=== PATIENT | male | born 1950 | race Caucasian/White ===

== ENCOUNTER 2017-07-22 16:43 | Inpatient (IN) | payer BC, MEDICARE ==
[~2017-07-22] VITALS: Ht 167.6 cm; Wt 145.9 kg
--- NOTE | 2017-07-22 16:52 | PHYS DOC ---
Adult General Chief Complaint Chief Complaint: SHORTNESS OF BREATH HPI HPI Patient is a 67 year old male who presents with fever, shortness of breath and generalized weakness. He states his been having a productive cough over the last 2 days with a sore throat. He states he is feeling very weak and tired. He and a fever 100.6 at home. He used a telephone physician who called many [facility] but he states he feels too weak and wants a second opinion. He denies any chest pain, nausea or vomiting. He states he has a history of A. fib. Patient does admit that he was in the [place] approximately 2- 3 weeks ago and initially got sick while he was there. Review of Systems Review of Systems Constitutional: Denies fever or chills [] Eyes: Denies change in visual acuity, redness, or eye pain [] HENT: Denies nasal congestion or sore throat [] Respiratory: Positive for productive cough and shortness of breath [] Cardiovascular: No additional information not addressed in HPI [] GI: Denies abdominal pain, nausea, vomiting, bloody stools or diarrhea [] : Denies dysuria or hematuria [] Musculoskeletal: Denies back pain or joint pain [] Integument: Denies rash or skin lesions [] Neurologic: Denies headache, focal weakness or sensory changes [] Endocrine: Denies polyuria or polydipsia [] All other systems were reviewed and found to be within normal limits, except as documented in this note. Allergies Allergies Allergies Coded Allergies Type Severity Reaction Last Updated Verified metoclopramide Allergy Severe 07/22/17 Yes Physical Exam Physical Exam Constitutional: Well developed, well nourished, no acute distress, non-toxic appearance. [] HENT: Normocephalic, atraumatic, bilateral external ears normal, oropharynx moist, no oral exudates, nose normal. [] Eyes: PERRLA, EOMI, conjunctiva normal, no discharge. [] Neck: Normal range of motion, no tenderness, supple, no stridor. [] Cardiovascular:Heart rate regular rhythm, no murmur [] Lungs & Thorax: Tachypnea with mild wheezing the right hemithorax Abdomen: Bowel sounds normal, soft, no tenderness, no masses, no pulsatile masses. [] Skin: Warm, dry, no erythema, no rash. [] Back: No tenderness, no CVA tenderness. [] Extremities: No tenderness, no cyanosis, no clubbing, ROM intact, no edema. [] Neurologic: Alert and oriented X 3, normal motor function, normal sensory function, no focal deficits noted. [] Psychologic: Affect normal, judgement normal, mood normal. [] Current Patient Data Vital Signs Vital Signs Date Time Temp Pulse Resp B/P (MAP) Pulse Ox O2 Delivery O2 Flow Rate FiO2 07/22/17 18:20 77 24 141/73 (95) 94 Room Air 07/22/17 17:19 98.0 98.0 Lab Values Laboratory Tests Test 07/22/17 17:11 07/22/17 17:52 07/22/17 18:10 White Blood Count 9.3 x10^3/uL (4.0-11.0) Red Blood Count 4.82 x10^6/uL (4.30-5.70) Hemoglobin 14.1 g/dL (13.0-17.5) Hematocrit 43.2 % (39.0-53.0) Mean Corpuscular Volume 90 fL (79-100) Mean Corpuscular Hemoglobin 29 pg (25-35) Mean Corpuscular Hemoglobin Concent 33 g/dL (31-37) Red Cell Distribution Width 14.9 % (11.5-14.5) H Platelet Count 199 x10^3/uL (140-400) Neutrophils (%) (Auto) 72 % (31-73) Lymphocytes (%) (Auto) 14 % (24-48) L Monocytes (%) (Auto) 12 % (0-9) H Eosinophils (%) (Auto) 0 % (0-3) Basophils (%) (Auto) 1 % (0-3) Neutrophils # (Auto) 6.7 x10^3uL (1.8-7.7) Lymphocytes # (Auto) 1.3 x10^3/uL (1.0-4.8) Monocytes # (Auto) 1.2 x10^3/uL (0.0-1.1) H Eosinophils # (Auto) 0.0 x10^3/uL (0.0-0.7) Basophils # (Auto) 0.1 x10^3/uL (0.0-0.2) Prothrombin Time 14.4 SEC (11.7-14.0) H Prothrombin Time INR 1.2 (0.8-1.1) H D-Dimer (Iman) 0.48 ug/mlFEU (0.00-0.50) Sodium Level 136 mmol/L (136-145) Potassium Level 4.5 mmol/L (3.5-5.1) Chloride Level 99 mmol/L (98-107) Carbon Dioxide Level 23 mmol/L (21-32) Anion Gap 14 (6-14) Blood Urea Nitrogen 16 mg/dL (8-26) Creatinine 1.0 mg/dL (0.7-1.3) Estimated GFR (Cockcroft-Gault) 74.8 Glucose Level 107 mg/dL (70-99) H Calcium Level 10.1 mg/dL (8.5-10.1) Magnesium Level 1.6 mg/dL (1.8-2.4) L Total Bilirubin 0.7 mg/dL (0.2-1.0) Direct Bilirubin 0.2 mg/dL (0.0-0.2) Aspartate Amino Transferase (AST) 16 U/L (15-37) Alanine Aminotransferase (ALT) 18 U/L (16-63) Alkaline Phosphatase 98 U/L (46-116) Creatine Kinase 100 U/L (39-308) Creatine Kinase MB (Mass) < 0.5 ng/mL (0.0-3.6) Creatine Kinase MB Relative Index 0.5 % (0-4) Troponin I Quantitative 0.031 ng/mL (0.000-0.055) OX-Pzr-Y-Type Natriuretic Peptide 600 pg/mL (0-124) H Total Protein 7.3 g/dL (6.4-8.2) Albumin 3.9 g/dL (3.4-5.0) Lipase 156 U/L (73-393) Influenza Type A Antigen Negative (NEGATIVE) Influenza Type B Antigen Negative (NEGATIVE) Urine Collection Type Unknown Urine Color Yellow Urine Clarity Clear Urine pH 7.0 Urine Specific [place] 1.020 Urine Protein Negative mg/dL (NEG-TRACE) Urine Glucose (UA) Negative mg/dL (NEG) Urine Ketones (Stick) Negative mg/dL (NEG) Urine Blood Negative (NEG) Urine Nitrite Negative (NEG) Urine Bilirubin Negative (NEG) Urine Urobilinogen Dipstick 1.0 mg/dL (0.2 mg/dL) Urine Leukocyte Esterase Negative (NEG) Urine RBC 0 /HPF (0-2) Urine WBC 0 /HPF (0-4) Urine Squamous Epithelial Cells None /LPF Urine Bacteria 0 /HPF (0-FEW) Urine Mucus Slight /LPF Urine Opiates Screen Neg (NEG) Urine Methadone Screen Neg (NEG) Urine Barbiturates Neg (NEG) Urine Phencyclidine Screen Neg (NEG) Urine Amphetamine/Methamphetamine Neg (NEG) Urine Benzodiazepines Screen Neg (NEG) Urine Cocaine Screen Neg (NEG) Urine Cannabinoids Screen Neg (NEG) Urine Ethyl Alcohol Neg (NEG) Laboratory Tests 07/22/17 17:11 Laboratory Tests 07/22/17 17:11 EKG EKG EKG shows sinus rhythm with rate of 80 bpm without any concerning ST elevations , T-wave inversions noted in lead 3, aVF, normal axis, QTC 421 ms, as interpreted by me. Radiology/Procedures Radiology/Procedures [facility] [address] [place], [place] [id number] IMAGING REPORT Signed PATIENT: LUIS ALBERTO ORDOÑEZ ACCOUNT: [id number] : 1950 LOCATION: ER AGE: 67 SEX: M EXAM STATUS: PRE ER ORD. PHYSICIAN: ELISE POTTER MD REASON: soa PROCEDURE: PORTABLE CHEST 1V Portable AP upright view CXR: Clinical indications: Shortness of breath. Dizziness today. Comparison: None available. Findings: No acute lung infiltrate or pleural effusion or pulmonary edema or lung mass or pneumothorax is seen. The heart size, pulmonary vasculature, mediastinum and both nereida are unremarkable given AP magnification and rotation towards the left side. Impression: No acute radiographic abnormality is seen. DICTATED and SIGNED BY: DORA GSATON MD DATE: 07/22/17 4875 CC: ELISE POTTER MD ~ Impressions: Productive cough Generalized weakness Course & Med Decision Making Course & Med Decision Making Pertinent Labs and Imaging studies reviewed. (See chart for details) X-ray, EKG, labs not show any acute abnormalities. His d-dimer is negative. Influenza is also negative. We'll admit and obtain blood cultures. He is in stable condition this time with strep throat screening pending. Dragon Disclaimer Dragon Disclaimer This electronic medical record was generated, in whole or in part, using a voice recognition dictation system. Departure Departure Impression: Primary Impression: Weakness Disposition: 09 ADMITTED INPATIENT Admitting Physician: Other Condition: STABLE ELISE POTTER MD Jul 22, 2017 16:52
[2017-07-22 17:21] LABS: BASO # 0.1 x10^3/uL (0.0-0.2); BASO % 1 % (0-3); EOS % 0 % (0-3); HEMATOCRIT 43.2 % (39.0-53.0); HEMOGLOBIN 14.1 g/dL (13.0-17.5); LYMPH # 1.3 x10^3/uL (1.0-4.8); LYMPH % 14 % (24-48); MEAN CORPUSCULAR HEMOGLOBIN 29 pg (25-35); MEAN CORPUSCULAR HGB CONC 33 g/dL (31-37); MEAN CORPUSCULAR VOLUME 90 fL (79-100); MONO % 12 % (0-9); NEUT % 72 % (31-73); PLATELET COUNT 199 x10^3/uL (140-400); RED BLOOD COUNT 4.82 x10^6/uL (4.30-5.70); RED CELL DISTRIBUTION WIDTH 14.9 % (11.5-14.5); WHITE BLOOD COUNT 9.3 x10^3/uL (4.0-11.0)
--- NOTE | 2017-07-22 17:29 | RAD ---
Portable AP upright view CXR: Clinical indications: Shortness of breath. Dizziness today. Comparison: None available. Findings: No acute lung infiltrate or pleural effusion or pulmonary edema or lung mass or pneumothorax is seen. The heart size, pulmonary vasculature, mediastinum and both nereida are unremarkable given AP magnification and rotation towards the left side. Impression: No acute radiographic abnormality is seen.
[2017-07-22 17:30] LABS: INR 1.2 (0.8-1.1); PROTHROMBIN TIME PATIENT 14.4 SEC (11.7-14.0)
[2017-07-22 17:41] LABS: CALCIUM 10.1 mg/dL (8.5-10.1); GFR 74.8; POTASSIUM 4.5 mmol/L (3.5-5.1)
[2017-07-22 17:48] LABS: ALBUMIN 3.9 g/dL (3.4-5.0); DIRECT BILIRUBIN 0.2 mg/dL (0.0-0.2); MAGNESIUM 1.6 mg/dL (1.8-2.4); TOTAL BILIRUBIN 0.7 mg/dL (0.2-1.0); TOTAL PROTEIN 7.3 g/dL (6.4-8.2)
[2017-07-22 17:57] LABS: CREATINE KINASE 100 U/L (39-308)
[2017-07-22 18:00] LABS: CKMB MASS < 0.5 ng/mL (0.0-3.6)
[2017-07-22 18:17] LABS: OBC FLU VALID
[2017-07-22 18:17] LABS: BILIRUBIN,URINE NEGATIVE (NEG); GLUCOSE,URINE NEGATIVE (NEG); NITRITE,URINE NEGATIVE (NEG); PROTEIN,URINE NEGATIVE (NEG-TRACE)
[2017-07-22 18:24] LABS: BACTERIA,URINE 0 /HPF (0-FEW); BARBITURATES NEG (NEG); BENZODIAZEPINES NEG (NEG); CANNABINOIDS NEG (NEG); COCAINE NEG (NEG); METHADONE NEG (NEG); OPIATES NEG (NEG); PHENCYCLIDINE NEG (NEG); RBC,URINE 0 /HPF (0-2); WBC,URINE 0 /HPF (0-4)
[2017-07-22] MEDS ORDERED: ONDANSETRON PF 4 MG/2 ML VIAL. IV PRN (18:45)
[2017-07-22 21:00] VITALS: BP 127/68
[2017-07-22] MEDS ORDERED: MAGN400T22 PO (21:53)
[2017-07-22] MEDS ORDERED: DILT240C32 PO (21:53)
[2017-07-22] MEDS ORDERED: CHOL500016 PO (21:53)
[2017-07-22] MEDS ORDERED: METF500T9 PO (21:53)
[2017-07-22] MEDS ORDERED: APIX5TAB PO (21:53)
[2017-07-22] MEDS ORDERED: SOTA80TA48 PO (21:53)
[2017-07-22] MEDS ORDERED: LISI1TAB5 PO (21:53)
[2017-07-22] MEDS ORDERED: CYAN10005 PO (21:53)
[2017-07-22] MEDS ORDERED: ATOR20TA58 PO (21:53)
--- NOTE | 2017-07-22 22:02 | EKG ---
[facility] [address] [place] [address] Test Date: 2017-07-22 Test Time: 17:02:54 Pat Name: LUIS ALBERTO ORDOÑEZ Department: Room: 578 Gender: M Tank Tender: : 1950 Requested By: ELISE POTTER Order Number: [id number] Reading MD: Alfonso Jolly Measurements Intervals [place] Rate: 80 P: 34 CO: 206 QRS: 79 QRSD: 104 T: -26 QT: 362 QTc: 420 Interpretive Statements SINUS RHYTHM QRS(T) CONTOUR ABNORMALITY CONSIDER ANTEROSEPTAL MYOCARDIAL DAMAGE T ABNORMALITY IN INFERIOR LEADS ABNORMAL ECG No previous ECG available for comparison Electronically Signed On 08-01-2017 9:12:05 [employer]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
[2017-07-22] MEDS ORDERED: ANTI-COAG MONITOR BY PHARMACY. MC PRN (22:30)
[2017-07-22] MEDS ORDERED: DEXTROSE 50% 25 GM / 50ML DISP.SYRIN. IV PRN (22:30)
[2017-07-22 23:00] VITALS: BP 134/69
--- NOTE | 2017-07-22 23:04 | HP ---
ADMIT DATE: 07/22/2017 CHIEF COMPLAINT: Shortness of breath, general malaise. HISTORY OF PRESENT ILLNESS: The patient is a 67-year-old morbidly obese gentleman with diabetes and atrial fibrillation who presented to the Emergency Room with shortness of breath, cough, sore throat and generalized weakness. He relates that he started feeling ill with sore throat on last . This became worse with increasing cough productive of greenish sputum. He does have some nasal congestion as well. Sore throat actually has continued over the past 5 days and today he developed a fever of 100.5 and took him to the Emergency Room for further management. In the Emergency Room, flu serology was actually negative. He is now admitted for viral syndrome/bronchitis. PAST MEDICAL HISTORY: Diabetes mellitus, atrial fibrillation, hypertension, hyperlipidemia. FAMILY HISTORY: Positive for heart disease. SOCIAL HISTORY: He is , living with his , continues to work with the [employer]. No toxic habits. ALLERGIES: METOCLOPRAMIDE AND RIVAROXABAN. HOME MEDICATIONS: MAR reconciled with home medications. REVIEW OF SYSTEMS: Generalized malaise, upper respiratory symptoms, cough with productive sputum as per HPI. Also, has fevers as well as anorexia without any nausea, vomiting, occasional loose bowel movements chronically from metformin. Denies any other symptoms in rest of organ system review. PHYSICAL EXAMINATION: VITAL SIGNS: From today show a blood pressure of 170/90, heart rate of 80, respiratory rate at 22. He is afebrile. GENERAL: This is a morbidly obese gentleman, alert and oriented, in no acute distress. LUNGS: Clear bilaterally. HEART: Has a regular rate and rhythm. ABDOMEN: Has positive bowel sounds. Morbidly obese. Organs could not be palpated. EXTREMITIES: Show no edema. SKIN: Warm, soft and dry without any rash. NEUROLOGIC: He appears grossly intact. LABORATORY DATA: CBC with a WBC of 9.3, hemoglobin 14.1, platelets of 199. Differential with 14 lymphs, 12 monos. Chemistries with BUN and creatinine of 16 and 1.0. Electrolytes within normal limits. Magnesium at 1.6. LFTs normal. Initial troponin 0.031. Lipase is normal. Tox screen is negative. Urine negative for any infectious signs. Influenza A and B serologies negative. IMAGING: Chest x-ray obtained in the Emergency Room shows no acute radiographic abnormality. ASSESSMENT AND PLAN: The patient is a 67-year-old morbidly obese gentleman with multiple risk factors for heart disease who now presents with upper respiratory symptoms/bronchitis. This has been going on for 4-5 days and has worsened. Suspicion is for a viral syndrome with bacterial superinfection. We will start him on azithromycin to catch atypicals. Otherwise, he will receive supportive treatment including throat lozenges, mucolytics, etc. His home medications were reviewed. We will restart his medications. He has not taken any of his blood pressure medications today. For his diabetes, we will hold metformin for the time being. This will be replaced with insulin sliding scale. Suspect he has some amount of dehydration as p.o. intake, according to , has been rather poor over the past few days. Continue to monitor all parameters. CAROLE VICTORIA MD DR: UR/nts JOB#: [id number] / [id number]
[2017-07-22] MEDS: LISINOPRIL 20 MG TABLET PO SCH (23:45)
[2017-07-23] MEDS: CHOLECALCIFEROL (VITAMIN D3) 5,000 UNIT CAPSULE PO SCH ×2 (00:07→08:09)
[2017-07-23] MEDS: MAGNESIUM OXIDE 400 MG TABLET PO SCH ×3 (00:08→20:15)
[2017-07-23] MEDS: APIXABAN 5 MG TABLET. PO SCH ×3 (00:08→20:15)
[2017-07-23] MEDS: ATORVASTATIN CALCIUM 20 MG TABLET PO SCH ×2 (00:09→20:15)
[2017-07-23] MEDS: CYANOCOBALAMIN (VITAMIN B-12) 1,000 MCG TABLET. PO SCH ×3 (00:09→20:15)
[2017-07-23] MEDS: SOTALOL 80 MG TABLET. PO SCH ×3 (00:10→21:17)
[2017-07-23] MEDS ORDERED: PNEUMOCOCCAL VAX SCREEN BY RX. MC PRN (02:15)
[2017-07-23 03:00] VITALS: BP 121/67
[2017-07-23] MEDS ORDERED: BENZOCAINE/MENTHOL LOZENGE. PO PRN (05:00)
[2017-07-23] MEDS: ACETAMINOPHEN 325 MG TABLET. PO PRN ×2 (05:24→17:44)
[2017-07-23 06:09] LABS: BASO % 0 % (0-3); EOS % 0 % (0-3); HEMATOCRIT 42.6 % (39.0-53.0); LYMPH % 18 % (24-48); MEAN CORPUSCULAR HEMOGLOBIN 29 pg (25-35); MEAN CORPUSCULAR HGB CONC 33 g/dL (31-37); MEAN CORPUSCULAR VOLUME 89 fL (79-100); MONO % 13 % (0-9); NEUT % 69 % (31-73); PLATELET COUNT 188 x10^3/uL (140-400); RED BLOOD COUNT 4.78 x10^6/uL (4.30-5.70); WHITE BLOOD COUNT 11.2 x10^3/uL (4.0-11.0)
[2017-07-23 06:38] LABS: ALBUMIN 3.8 g/dL (3.4-5.0); CALCIUM 9.8 mg/dL (8.5-10.1); GFR 74.8; POTASSIUM 4.5 mmol/L (3.5-5.1); TOTAL BILIRUBIN 0.9 mg/dL (0.2-1.0); TOTAL PROTEIN 7.5 g/dL (6.4-8.2)
[2017-07-23 07:00] VITALS: BP 122/59
[2017-07-23] MEDS: INSULIN ASPART 300 UNITS/3 ML INSULN.PEN SQ SCH ×3 (08:00→17:00)
[2017-07-23] MEDS: LISINOPRIL 20 MG TABLET PO SCH (08:10)
[2017-07-23] MEDS ORDERED: CHOLECALCIFEROL (VITAMIN D3) 5,000 UNIT CAPSULE PO SCH (09:00)
[2017-07-23] MEDS ORDERED: LISINOPRIL 20 MG TABLET PO SCH (09:00)
[2017-07-23] MEDS ORDERED: PNEUMOC CONJ VACC 23-VALENT 0.5 ML VIAL. VAX IM ONE (09:00)
[2017-07-23 10:44] VITALS: BP 128/70
--- NOTE | 2017-07-23 11:14 | PDOC ---
PROGRESS NOTES Chief Complaint Chief Complaint Viral URI DM2 Afib Elevated Troponin History of Present Illness History of Present Illness Patient reports improving clinical symptoms and feeling better with supportive care. CXR showed no acute process. Empiric azithromycin was started. Patient reports PMH of Afib, and showed an elevated troponin so consulting cardiology. Okay to d/c when determined by cardio. Vitals Vitals Vital Signs Date Time Temp Pulse Resp B/P (MAP) Pulse Ox O2 Delivery O2 Flow Rate FiO2 07/23/17 10:44 97.9 63 20 128/70 (89) 95 Room Air 97.9 Physical Exam General: Alert, Oriented X3, Cooperative Heart: Regular rate, No murmurs Lungs: Clear Abdomen: Normal bowel sounds, Soft, No tenderness Labs LABS Laboratory Tests Test 07/22/17 17:11 07/22/17 17:52 07/22/17 18:10 07/23/17 00:41 White Blood Count 9.3 x10^3/uL (4.0-11.0) Red Blood Count 4.82 x10^6/uL (4.30-5.70) Hemoglobin 14.1 g/dL (13.0-17.5) Hematocrit 43.2 % (39.0-53.0) Mean Corpuscular Volume 90 fL (79-100) Mean Corpuscular Hemoglobin 29 pg (25-35) Mean Corpuscular Hemoglobin Concent 33 g/dL (31-37) Red Cell Distribution Width 14.9 % (11.5-14.5) Platelet Count 199 x10^3/uL (140-400) Neutrophils (%) (Auto) 72 % (31-73) Lymphocytes (%) (Auto) 14 % (24-48) Monocytes (%) (Auto) 12 % (0-9) Eosinophils (%) (Auto) 0 % (0-3) Basophils (%) (Auto) 1 % (0-3) Neutrophils # (Auto) 6.7 x10^3uL (1.8-7.7) Lymphocytes # (Auto) 1.3 x10^3/uL (1.0-4.8) Monocytes # (Auto) 1.2 x10^3/uL (0.0-1.1) Eosinophils # (Auto) 0.0 x10^3/uL (0.0-0.7) Basophils # (Auto) 0.1 x10^3/uL (0.0-0.2) Prothrombin Time 14.4 SEC (11.7-14.0) Prothromb Time International Ratio 1.2 (0.8-1.1) D-Dimer (Iman) 0.48 ug/mlFEU (0.00-0.50) Sodium Level 136 mmol/L (136-145) Potassium Level 4.5 mmol/L (3.5-5.1) Chloride Level 99 mmol/L (98-107) Carbon Dioxide Level 23 mmol/L (21-32) Anion Gap 14 (6-14) Blood Urea Nitrogen 16 mg/dL (8-26) Creatinine 1.0 mg/dL (0.7-1.3) Estimated GFR (Cockcroft-Gault) 74.8 Glucose Level 107 mg/dL (70-99) Calcium Level 10.1 mg/dL (8.5-10.1) Magnesium Level 1.6 mg/dL (1.8-2.4) Total Bilirubin 0.7 mg/dL (0.2-1.0) Direct Bilirubin 0.2 mg/dL (0.0-0.2) Aspartate Amino Transf (AST/SGOT) 16 U/L (15-37) Alanine Aminotransferase (ALT/SGPT) 18 U/L (16-63) Alkaline Phosphatase 98 U/L (46-116) Creatine Kinase 100 U/L (39-308) Creatine Kinase MB (Mass) < 0.5 ng/mL (0.0-3.6) Creatine Kinase MB Relative Index 0.5 % (0-4) Troponin I Quantitative 0.031 ng/mL (0.000-0.055) 0.045 ng/mL (0.000-0.055) MP-Bzq-X-Type Natriuretic Peptide 600 pg/mL (0-124) Total Protein 7.3 g/dL (6.4-8.2) Albumin 3.9 g/dL (3.4-5.0) Lipase 156 U/L (73-393) Influenza Type A Antigen Negative (NEGATIVE) Influenza Type B Antigen Negative (NEGATIVE) Urine Collection Type Unknown Urine Color Yellow Urine Clarity Clear Urine pH 7.0 Urine Specific [place] 1.020 Urine Protein Negative mg/dL (NEG-TRACE) Urine Glucose (UA) Negative mg/dL (NEG) Urine Ketones (Stick) Negative mg/dL (NEG) Urine Blood Negative (NEG) Urine Nitrite Negative (NEG) Urine Bilirubin Negative (NEG) Urine Urobilinogen Dipstick 1.0 mg/dL (0.2 mg/dL) Urine Leukocyte Esterase Negative (NEG) Urine RBC 0 /HPF (0-2) Urine WBC 0 /HPF (0-4) Urine Squamous Epithelial Cells None /LPF Urine Bacteria 0 /HPF (0-FEW) Urine Mucus Slight /LPF Urine Opiates Screen Neg (NEG) Urine Methadone Screen Neg (NEG) Urine Barbiturates Neg (NEG) Urine Phencyclidine Screen Neg (NEG) Urine Amphetamine/Methamphetamine Neg (NEG) Urine Benzodiazepines Screen Neg (NEG) Urine Cocaine Screen Neg (NEG) Urine Cannabinoids Screen Neg (NEG) Urine Ethyl Alcohol Neg (NEG) Test 07/23/17 04:50 07/23/17 07:09 07/23/17 11:02 White Blood Count 11.2 x10^3/uL (4.0-11.0) Red Blood Count 4.78 x10^6/uL (4.30-5.70) Hemoglobin 14.0 g/dL (13.0-17.5) Hematocrit 42.6 % (39.0-53.0) Mean Corpuscular Volume 89 fL (79-100) Mean Corpuscular Hemoglobin 29 pg (25-35) Mean Corpuscular Hemoglobin Concent 33 g/dL (31-37) Red Cell Distribution Width 15.0 % (11.5-14.5) Platelet Count 188 x10^3/uL (140-400) Neutrophils (%) (Auto) 69 % (31-73) Lymphocytes (%) (Auto) 18 % (24-48) Monocytes (%) (Auto) 13 % (0-9) Eosinophils (%) (Auto) 0 % (0-3) Basophils (%) (Auto) 0 % (0-3) Neutrophils # (Auto) 7.7 x10^3uL (1.8-7.7) Lymphocytes # (Auto) 2.0 x10^3/uL (1.0-4.8) Monocytes # (Auto) 1.5 x10^3/uL (0.0-1.1) Eosinophils # (Auto) 0.0 x10^3/uL (0.0-0.7) Basophils # (Auto) 0.0 x10^3/uL (0.0-0.2) Sodium Level 135 mmol/L (136-145) Potassium Level 4.5 mmol/L (3.5-5.1) Chloride Level 99 mmol/L (98-107) Carbon Dioxide Level 23 mmol/L (21-32) Anion Gap 13 (6-14) Blood Urea Nitrogen 17 mg/dL (8-26) Creatinine 1.0 mg/dL (0.7-1.3) Estimated GFR (Cockcroft-Gault) 74.8 BUN/Creatinine Ratio 17 (6-20) Glucose Level 110 mg/dL (70-99) Calcium Level 9.8 mg/dL (8.5-10.1) Total Bilirubin 0.9 mg/dL (0.2-1.0) Aspartate Amino Transf (AST/SGOT) 17 U/L (15-37) Alanine Aminotransferase (ALT/SGPT) 16 U/L (16-63) Alkaline Phosphatase 92 U/L (46-116) Troponin I Quantitative 0.056 ng/mL (0.000-0.055) Total Protein 7.5 g/dL (6.4-8.2) Albumin 3.8 g/dL (3.4-5.0) Albumin/Globulin Ratio 1.0 (1.0-1.7) Glucose (Fingerstick) 106 mg/dL (70-99) 107 mg/dL (70-99) Review of Systems Review of Systems Patient reports feeling better Patient denies CP Patient reports mild cough Assessment and Plan Assessmemt and Plan Problems Medical Problems: (1) Weakness Status: Acute Assessment: Viral URI DM2 Afib Elevated Troponin Plan: Consult cardiology for elevated troponin Recheck labs Insulin sliding scale Azithromycin PT/OT Appreciate subspecialist input D/c when okay with cardiology Problems: Comment Review of Relevant I have reviewed the following items grover (where applicable) has been applied. Labs Laboratory Tests Test 07/22/17 17:11 07/22/17 17:52 07/22/17 18:10 07/23/17 00:41 White Blood Count 9.3 x10^3/uL (4.0-11.0) Red Blood Count 4.82 x10^6/uL (4.30-5.70) Hemoglobin 14.1 g/dL (13.0-17.5) Hematocrit 43.2 % (39.0-53.0) Mean Corpuscular Volume 90 fL (79-100) Mean Corpuscular Hemoglobin 29 pg (25-35) Mean Corpuscular Hemoglobin Concent 33 g/dL (31-37) Red Cell Distribution Width 14.9 % (11.5-14.5) Platelet Count 199 x10^3/uL (140-400) Neutrophils (%) (Auto) 72 % (31-73) Lymphocytes (%) (Auto) 14 % (24-48) Monocytes (%) (Auto) 12 % (0-9) Eosinophils (%) (Auto) 0 % (0-3) Basophils (%) (Auto) 1 % (0-3) Neutrophils # (Auto) 6.7 x10^3uL (1.8-7.7) Lymphocytes # (Auto) 1.3 x10^3/uL (1.0-4.8) Monocytes # (Auto) 1.2 x10^3/uL (0.0-1.1) Eosinophils # (Auto) 0.0 x10^3/uL (0.0-0.7) Basophils # (Auto) 0.1 x10^3/uL (0.0-0.2) Prothrombin Time 14.4 SEC (11.7-14.0) Prothromb Time International Ratio 1.2 (0.8-1.1) D-Dimer (Iman) 0.48 ug/mlFEU (0.00-0.50) Sodium Level 136 mmol/L (136-145) Potassium Level 4.5 mmol/L (3.5-5.1) Chloride Level 99 mmol/L (98-107) Carbon Dioxide Level 23 mmol/L (21-32) Anion Gap 14 (6-14) Blood Urea Nitrogen 16 mg/dL (8-26) Creatinine 1.0 mg/dL (0.7-1.3) Estimated GFR (Cockcroft-Gault) 74.8 Glucose Level 107 mg/dL (70-99) Calcium Level 10.1 mg/dL (8.5-10.1) Magnesium Level 1.6 mg/dL (1.8-2.4) Total Bilirubin 0.7 mg/dL (0.2-1.0) Direct Bilirubin 0.2 mg/dL (0.0-0.2) Aspartate Amino Transf (AST/SGOT) 16 U/L (15-37) Alanine Aminotransferase (ALT/SGPT) 18 U/L (16-63) Alkaline Phosphatase 98 U/L (46-116) Creatine Kinase 100 U/L (39-308) Creatine Kinase MB (Mass) < 0.5 ng/mL (0.0-3.6) Creatine Kinase MB Relative Index 0.5 % (0-4) Troponin I Quantitative 0.031 ng/mL (0.000-0.055) 0.045 ng/mL (0.000-0.055) BP-Fhu-X-Type Natriuretic Peptide 600 pg/mL (0-124) Total Protein 7.3 g/dL (6.4-8.2) Albumin 3.9 g/dL (3.4-5.0) Lipase 156 U/L (73-393) Influenza Type A Antigen Negative (NEGATIVE) Influenza Type B Antigen Negative (NEGATIVE) Urine Collection Type Unknown Urine Color Yellow Urine Clarity Clear Urine pH 7.0 Urine Specific [place] 1.020 Urine Protein Negative mg/dL (NEG-TRACE) Urine Glucose (UA) Negative mg/dL (NEG) Urine Ketones (Stick) Negative mg/dL (NEG) Urine Blood Negative (NEG) Urine Nitrite Negative (NEG) Urine Bilirubin Negative (NEG) Urine Urobilinogen Dipstick 1.0 mg/dL (0.2 mg/dL) Urine Leukocyte Esterase Negative (NEG) Urine RBC 0 /HPF (0-2) Urine WBC 0 /HPF (0-4) Urine Squamous Epithelial Cells None /LPF Urine Bacteria 0 /HPF (0-FEW) Urine Mucus Slight /LPF Urine Opiates Screen Neg (NEG) Urine Methadone Screen Neg (NEG) Urine Barbiturates Neg (NEG) Urine Phencyclidine Screen Neg (NEG) Urine Amphetamine/Methamphetamine Neg (NEG) Urine Benzodiazepines Screen Neg (NEG) Urine Cocaine Screen Neg (NEG) Urine Cannabinoids Screen Neg (NEG) Urine Ethyl Alcohol Neg (NEG) Test 07/23/17 04:50 07/23/17 07:09 07/23/17 11:02 White Blood Count 11.2 x10^3/uL (4.0-11.0) Red Blood Count 4.78 x10^6/uL (4.30-5.70) Hemoglobin 14.0 g/dL (13.0-17.5) Hematocrit 42.6 % (39.0-53.0) Mean Corpuscular Volume 89 fL (79-100) Mean Corpuscular Hemoglobin 29 pg (25-35) Mean Corpuscular Hemoglobin Concent 33 g/dL (31-37) Red Cell Distribution Width 15.0 % (11.5-14.5) Platelet Count 188 x10^3/uL (140-400) Neutrophils (%) (Auto) 69 % (31-73) Lymphocytes (%) (Auto) 18 % (24-48) Monocytes (%) (Auto) 13 % (0-9) Eosinophils (%) (Auto) 0 % (0-3) Basophils (%) (Auto) 0 % (0-3) Neutrophils # (Auto) 7.7 x10^3uL (1.8-7.7) Lymphocytes # (Auto) 2.0 x10^3/uL (1.0-4.8) Monocytes # (Auto) 1.5 x10^3/uL (0.0-1.1) Eosinophils # (Auto) 0.0 x10^3/uL (0.0-0.7) Basophils # (Auto) 0.0 x10^3/uL (0.0-0.2) Sodium Level 135 mmol/L (136-145) Potassium Level 4.5 mmol/L (3.5-5.1) Chloride Level 99 mmol/L (98-107) Carbon Dioxide Level 23 mmol/L (21-32) Anion Gap 13 (6-14) Blood Urea Nitrogen 17 mg/dL (8-26) Creatinine 1.0 mg/dL (0.7-1.3) Estimated GFR (Cockcroft-Gault) 74.8 BUN/Creatinine Ratio 17 (6-20) Glucose Level 110 mg/dL (70-99) Calcium Level 9.8 mg/dL (8.5-10.1) Total Bilirubin 0.9 mg/dL (0.2-1.0) Aspartate Amino Transf (AST/SGOT) 17 U/L (15-37) Alanine Aminotransferase (ALT/SGPT) 16 U/L (16-63) Alkaline Phosphatase 92 U/L (46-116) Troponin I Quantitative 0.056 ng/mL (0.000-0.055) Total Protein 7.5 g/dL (6.4-8.2) Albumin 3.8 g/dL (3.4-5.0) Albumin/Globulin Ratio 1.0 (1.0-1.7) Glucose (Fingerstick) 106 mg/dL (70-99) 107 mg/dL (70-99) Laboratory Tests Test 07/22/17 17:11 07/22/17 17:52 07/22/17 18:10 07/23/17 00:41 White Blood Count 9.3 x10^3/uL (4.0-11.0) Red Blood Count 4.82 x10^6/uL (4.30-5.70) Hemoglobin 14.1 g/dL (13.0-17.5) Hematocrit 43.2 % (39.0-53.0) Mean Corpuscular Volume 90 fL (79-100) Mean Corpuscular Hemoglobin 29 pg (25-35) Mean Corpuscular Hemoglobin Concent 33 g/dL (31-37) Red Cell Distribution Width 14.9 % (11.5-14.5) Platelet Count 199 x10^3/uL (140-400) Neutrophils (%) (Auto) 72 % (31-73) Lymphocytes (%) (Auto) 14 % (24-48) Monocytes (%) (Auto) 12 % (0-9) Eosinophils (%) (Auto) 0 % (0-3) Basophils (%) (Auto) 1 % (0-3) Neutrophils # (Auto) 6.7 x10^3uL (1.8-7.7) Lymphocytes # (Auto) 1.3 x10^3/uL (1.0-4.8) Monocytes # (Auto) 1.2 x10^3/uL (0.0-1.1) Eosinophils # (Auto) 0.0 x10^3/uL (0.0-0.7) Basophils # (Auto) 0.1 x10^3/uL (0.0-0.2) Prothrombin Time 14.4 SEC (11.7-14.0) Prothromb Time International Ratio 1.2 (0.8-1.1) D-Dimer (Iman) 0.48 ug/mlFEU (0.00-0.50) Sodium Level 136 mmol/L (136-145) Potassium Level 4.5 mmol/L (3.5-5.1) Chloride Level 99 mmol/L (98-107) Carbon Dioxide Level 23 mmol/L (21-32) Anion Gap 14 (6-14) Blood Urea Nitrogen 16 mg/dL (8-26) Creatinine 1.0 mg/dL (0.7-1.3) Estimated GFR (Cockcroft-Gault) 74.8 Glucose Level 107 mg/dL (70-99) Calcium Level 10.1 mg/dL (8.5-10.1) Magnesium Level 1.6 mg/dL (1.8-2.4) Total Bilirubin 0.7 mg/dL (0.2-1.0) Direct Bilirubin 0.2 mg/dL (0.0-0.2) Aspartate Amino Transf (AST/SGOT) 16 U/L (15-37) Alanine Aminotransferase (ALT/SGPT) 18 U/L (16-63) Alkaline Phosphatase 98 U/L (46-116) Creatine Kinase 100 U/L (39-308) Creatine Kinase MB (Mass) < 0.5 ng/mL (0.0-3.6) Creatine Kinase MB Relative Index 0.5 % (0-4) Troponin I Quantitative 0.031 ng/mL (0.000-0.055) 0.045 ng/mL (0.000-0.055) XX-Xde-A-Type Natriuretic Peptide 600 pg/mL (0-124) Total Protein 7.3 g/dL (6.4-8.2) Albumin 3.9 g/dL (3.4-5.0) Lipase 156 U/L (73-393) Influenza Type A Antigen Negative (NEGATIVE) Influenza Type B Antigen Negative (NEGATIVE) Urine Collection Type Unknown Urine Color Yellow Urine Clarity Clear Urine pH 7.0 Urine Specific [place] 1.020 Urine Protein Negative mg/dL (NEG-TRACE) Urine Glucose (UA) Negative mg/dL (NEG) Urine Ketones (Stick) Negative mg/dL (NEG) Urine Blood Negative (NEG) Urine Nitrite Negative (NEG) Urine Bilirubin Negative (NEG) Urine Urobilinogen Dipstick 1.0 mg/dL (0.2 mg/dL) Urine Leukocyte Esterase Negative (NEG) Urine RBC 0 /HPF (0-2) Urine WBC 0 /HPF (0-4) Urine Squamous Epithelial Cells None /LPF Urine Bacteria 0 /HPF (0-FEW) Urine Mucus Slight /LPF Urine Opiates Screen Neg (NEG) Urine Methadone Screen Neg (NEG) Urine Barbiturates Neg (NEG) Urine Phencyclidine Screen Neg (NEG) Urine Amphetamine/Methamphetamine Neg (NEG) Urine Benzodiazepines Screen Neg (NEG) Urine Cocaine Screen Neg (NEG) Urine Cannabinoids Screen Neg (NEG) Urine Ethyl Alcohol Neg (NEG) Test 07/23/17 04:50 07/23/17 07:09 07/23/17 11:02 White Blood Count 11.2 x10^3/uL (4.0-11.0) Red Blood Count 4.78 x10^6/uL (4.30-5.70) Hemoglobin 14.0 g/dL (13.0-17.5) Hematocrit 42.6 % (39.0-53.0) Mean Corpuscular Volume 89 fL (79-100) Mean Corpuscular Hemoglobin 29 pg (25-35) Mean Corpuscular Hemoglobin Concent 33 g/dL (31-37) Red Cell Distribution Width 15.0 % (11.5-14.5) Platelet Count 188 x10^3/uL (140-400) Neutrophils (%) (Auto) 69 % (31-73) Lymphocytes (%) (Auto) 18 % (24-48) Monocytes (%) (Auto) 13 % (0-9) Eosinophils (%) (Auto) 0 % (0-3) Basophils (%) (Auto) 0 % (0-3) Neutrophils # (Auto) 7.7 x10^3uL (1.8-7.7) Lymphocytes # (Auto) 2.0 x10^3/uL (1.0-4.8) Monocytes # (Auto) 1.5 x10^3/uL (0.0-1.1) Eosinophils # (Auto) 0.0 x10^3/uL (0.0-0.7) Basophils # (Auto) 0.0 x10^3/uL (0.0-0.2) Sodium Level 135 mmol/L (136-145) Potassium Level 4.5 mmol/L (3.5-5.1) Chloride Level 99 mmol/L (98-107) Carbon Dioxide Level 23 mmol/L (21-32) Anion Gap 13 (6-14) Blood Urea Nitrogen 17 mg/dL (8-26) Creatinine 1.0 mg/dL (0.7-1.3) Estimated GFR (Cockcroft-Gault) 74.8 BUN/Creatinine Ratio 17 (6-20) Glucose Level 110 mg/dL (70-99) Calcium Level 9.8 mg/dL (8.5-10.1) Total Bilirubin 0.9 mg/dL (0.2-1.0) Aspartate Amino Transf (AST/SGOT) 17 U/L (15-37) Alanine Aminotransferase (ALT/SGPT) 16 U/L (16-63) Alkaline Phosphatase 92 U/L (46-116) Troponin I Quantitative 0.056 ng/mL (0.000-0.055) Total Protein 7.5 g/dL (6.4-8.2) Albumin 3.8 g/dL (3.4-5.0) Albumin/Globulin Ratio 1.0 (1.0-1.7) Glucose (Fingerstick) 106 mg/dL (70-99) 107 mg/dL (70-99) Medications Current Medications Ondansetron HCl (Zofran) 4 mg PRN Q8HRS PRN IV NAUSEA/VOMITING; Start at 18:45; Stop 07/23/17 at 18:44 Apixaban (Eliquis) 5 mg BID PO Last administered on 07/23/17 08:09; Start at 23:00 Atorvastatin Calcium (Lipitor) 20 mg HS PO Last administered on 07/23/17 00: 09; Start 07/22/17 at 23:00 Cyanocobalamin (Vitamin B-12) 1,000 mcg BID PO Last administered on 07/23/17 08:09; Start 07/22/17 at 23:00 Diltiazem HCl (Cardizem 24hr Cd) 240 mg DAILY PO ; Start 07/23/17 at 09:00; Stop 07/23/17 at 09:00; Status DC Magnesium Oxide (Magnesium Oxide) 800 mg BID PO Last administered on 08:10; Start 07/22/17 at 23:00 Sotalol HCl (Betapace) 80 mg BID PO Last administered on 07/23/17 08:09; Start 07/22/17 at 23:00 Vitamin D (Vitamin D3) 5,000 unit DAILY PO ; Start 07/23/17 at 09:00; Stop at 09:00; Status DC Lisinopril (Prinivil) 20 mg DAILY PO ; Start 07/23/17 at 09:00; Stop 07/23/17 at 09:00; Status DC Insulin Aspart (NovoLOG) 0-7 UNITS TIDWMEALS SQ ; Start 07/23/17 at 08:00 Dextrose (Dextrose 50%-Water Syringe) 12.5 gm PRN Q15MIN PRN IV SEE COMMENTS; Start 07/22/17 at 22:30 Info (Anti-Coagulation Monitoring By Pharmacy) 1 each PRN DAILY PRN MC SEE COMMENTS Last administered on 07/23/17 01:13; Start 07/22/17 at 22:30 Guaifenesin (Mucinex) 600 mg BID PO Last administered on 07/23/17 08:09; Start 07/22/17 at 23:00 Vitamin D (Vitamin D3) 5,000 unit DAILY PO Last administered on 07/23/17 08: 09; Start 07/22/17 at 23:45 Diltiazem HCl (Cardizem 24hr Cd) 240 mg DAILY PO Last administered on 08:09; Start 07/22/17 at 23:45 Lisinopril (Prinivil) 20 mg DAILY PO Last administered on 07/23/17 08:10; Start 07/22/17 at 23:45 Pneumococcal Polyvalent Vaccine (Do NOT chart on this placeholder) 1 each PRN 1X PRN MC SEE COMMENTS; Start 07/23/17 at 02:15; Status UNV Pneumococcal Polyvalent Vaccine (Pneumovax 23) 0.5 ml ONCE ONCE VAX IM Last administered on 07/23/17 08:14; Start 07/23/17 at 09:00; Stop 07/23/17 at 09 :01; Status DC Acetaminophen (Tylenol) 650 mg PRN Q6HRS PRN PO MILD PAIN / TEMP Last administered on 12/27/17at 05:24; Start 07/23/17 at 05:00 Throat Lozenges (Cepacol Sore Throat Lozenge) 1 patricia PRN Q2HRS PRN PO SORE THROAT; Start 07/23/17 at 05:00 Active Scripts Active Reported Mag-Oxide (Magnesium Oxide) 400 Mg Tablet 2 Tab PO BID Vitamin B-12 (Cyanocobalamin (Vitamin B-12)) 1,000 Mcg Tablet 1 Tab PO BID Vitamin D3 (Cholecalciferol (Vitamin D3)) 5,000 Unit Tablet 1 Tab PO DAILY Metformin Hcl Er (Metformin Hcl) 500 Mg Tab.er.24h 500 Mg PO TIDWMEALS Atorvastatin Calcium 20 Mg Tablet 20 Mg PO HS Lisinopril-Hctz 20-12.5 Mg Tab (Lisinopril/Hydrochlorothiazide) 1 Each Tablet 12.5-20 Mg PO DAILY Eliquis (Apixaban) 5 Mg Tablet 5 Mg PO BID Sotalol (Sotalol Hcl) 80 Mg Tablet 80 Mg PO BID Diltiazem 24HR Cd (Diltiazem Hcl) 240 Mg Cap.er.24h 240 Mg PO DAILY Vitals/I & O Vital Sign - Last 24 Hours 07/22/17 07/22/17 07/22/17 07/22/17 17:19 18:20 18:55 19:25 Temp 98.0 98.0 Pulse 75 77 78 80 Resp 18 24 22 20 B/P (MAP) 174/77 (109) 141/73 (95) 184/86 (118) 160/71 (100) Pulse Ox 96 94 92 94 O2 Delivery Room Air Room Air Room Air Room Air 07/22/17 07/22/17 07/22/17 07/22/17 20:00 21:00 21:15 23:00 Temp 98.8 100.0 98.8 100.0 Pulse 80 92 81 Resp 22 21 21 B/P (MAP) 170/90 (116) 127/68 (87) 134/69 (90) Pulse Ox 94 94 96 O2 Delivery Room Air Room Air Room Air BiPAP/CPAP 07/23/17 07/23/17 07/23/17 07/23/17 00:10 03:00 07:00 08:05 Temp 99.4 97.9 99.4 97.9 Pulse 80 76 71 Resp 18 20 B/P (MAP) 121/65 121/67 (85) 122/59 (80) Pulse Ox 95 96 O2 Delivery BiPAP/CPAP Room Air Room Air 07/23/17 07/23/17 07/23/17 07/23/17 08:09 08:09 08:10 10:44 Temp 97.9 97.9 Pulse 71 71 71 63 Resp 20 B/P (MAP) 122/59 122/59 122/59 128/70 (89) Pulse Ox 95 O2 Delivery Room Air Intake and Output 07/22/17 07/22/17 07/23/17 15:00 23:00 07:00 Output Total 150 ml Balance -150 ml BLAKE HORTA III DO Jul 23, 2017 11:14
--- NOTE | 2017-07-23 12:53 | PDOC2 ---
TASH PEREZ RECORDS SUPERVISOR 07/23/17 1253: CARDIAC CONSULT DATE OF CONSULT Date of Consult DATE: 07/23/17 TIME: 12:36 REASON FOR CONSULT Reason for Consult: Elevated troponin AFIB REFERRING PHYSICIAN Referring Physician: Dr. Gracia SOURCE Source: Chart review, Patient HISTORY OF PRESENT ILLNESS HISTORY OF PRESENT ILLNESS This is a 67 yo male who presented with complaints of congestion, cough productive of brown/yellow sputum, body aches, and sore throat. Not feeling well overall since last . Febrile and very weak at home today. Came to the ED for further evaluation and treatment. Troponin noted to be mildly elevated, which prompted this consult. Denies any chest pain, palpitations, dizziness, diaphoresis, or nausea/vomiting. Has a history of PAFIB, follow with Dr. Blue with [facility]. No recent stress test or echo. Reports normal cath "years ago." PAST MEDICAL HISTORY Cardiovascular: AFIB, HTN, Hyperlipidemia Pulmonary: Other (CHRISTA) CENTRAL NERVOUS SYSTEM: Periperal neuropathy GI: No pertinent hx Heme/Onc: No pertinent hx Hepatobiliary: No pertinent hx Psych: No pertinent hx Musculoskeletal: Osteoarthritis Rheumatologic: No pertinent hx Infectious disease: No pertinent hx ENT: No pertinent hx Renal/: No pertinent hx Endocrine: Diabetes Dermatology: No pertinent hx PAST SURGICAL HISTORY Past Surgical History: Appendectomy, Cholecystectomy FAMILY HISTORY Family History: Heart Disease, Hypertension SOCIAL HISTORY Smoke: No ALCOHOL: none Drugs: None Lives: with Family CURRENT MEDICATIONS CURRENT MEDICATIONS Current Medications Medications (Trade) Dose Ordered Sig/Diane Route PRN Reason Start Time Stop Time Status Last Admin Dose Admin Apixaban (Eliquis) 5 mg BID PO 07/22/17 23:00 07/23/17 08:09 Atorvastatin Calcium (Lipitor) 20 mg HS PO 07/22/17 23:00 07/23/17 00:09 Cyanocobalamin (Vitamin B-12) 1,000 mcg BID PO 07/22/17 23:00 07/23/17 08:09 Magnesium Oxide (Magnesium Oxide) 800 mg BID PO 07/22/17 23:00 07/23/17 08:10 Sotalol HCl (Betapace) 80 mg BID PO 07/22/17 23:00 07/23/17 08:09 Info (Anti-Coagulation Monitoring By Pharmacy) 1 each PRN DAILY PRN MC SEE COMMENTS 07/22/17 22:30 07/23/17 01:13 Guaifenesin (Mucinex) 600 mg BID PO 07/22/17 23:00 07/23/17 08:09 Vitamin D (Vitamin D3) 5,000 unit DAILY PO 07/22/17 23:45 07/23/17 08:09 Diltiazem HCl (Cardizem 24hr Cd) 240 mg DAILY PO 07/22/17 23:45 07/23/17 08:09 Lisinopril (Prinivil) 20 mg DAILY PO 07/22/17 23:45 07/23/17 08:10 Pneumococcal Polyvalent Vaccine (Pneumovax 23) 0.5 ml ONCE ONCE VAX IM 07/23/17 09:00 07/23/17 09:01 DC 07/23/17 08:14 Acetaminophen (Tylenol) 650 mg PRN Q6HRS PRN PO MILD PAIN / TEMP 07/23/17 05:00 07/23/17 05:24 ALLERGIES ALLERGIES: Coded Allergies: metoclopramide (Verified Allergy, Severe, 07/22/17) rivaroxaban (Verified Allergy, Intermediate, 07/22/17) ROS Review of System 14 point ROS conducted with pertinent positives noted above in HPI. PHYSICAL EXAM General: Alert, Oriented X3, Cooperative, No acute distress HEENT: Atraumatic, Mucous membr. moist/pink Lungs: Clear to auscultation, Other (fine expiratory wheezes) Heart: Regular rate, Normal S1, Normal S2, Other (2/6 systolic murmur ) Abdomen: Normal bowel sounds, No tenderness Extremities: Normal pulses Skin: No breakdown, No significant lesion Neuro: Normal speech, Sensation intact Psych/Mental Status: Mental status NL, Mood NL MUSCULOSKELETAL: Osteoarthritic changes both hands VITALS VITALS Vital Signs Date Time Temp Pulse Resp B/P (MAP) Pulse Ox O2 Delivery O2 Flow Rate FiO2 07/23/17 10:44 97.9 63 20 128/70 (89) 95 Room Air 97.9 LABS Lab: Laboratory Tests Test 07/22/17 17:11 07/22/17 17:52 07/22/17 18:10 07/23/17 00:41 White Blood Count 9.3 x10^3/uL (4.0-11.0) Red Blood Count 4.82 x10^6/uL (4.30-5.70) Hemoglobin 14.1 g/dL (13.0-17.5) Hematocrit 43.2 % (39.0-53.0) Mean Corpuscular Volume 90 fL (79-100) Mean Corpuscular Hemoglobin 29 pg (25-35) Mean Corpuscular Hemoglobin Concent 33 g/dL (31-37) Red Cell Distribution Width 14.9 % (11.5-14.5) Platelet Count 199 x10^3/uL (140-400) Neutrophils (%) (Auto) 72 % (31-73) Lymphocytes (%) (Auto) 14 % (24-48) Monocytes (%) (Auto) 12 % (0-9) Eosinophils (%) (Auto) 0 % (0-3) Basophils (%) (Auto) 1 % (0-3) Neutrophils # (Auto) 6.7 x10^3uL (1.8-7.7) Lymphocytes # (Auto) 1.3 x10^3/uL (1.0-4.8) Monocytes # (Auto) 1.2 x10^3/uL (0.0-1.1) Eosinophils # (Auto) 0.0 x10^3/uL (0.0-0.7) Basophils # (Auto) 0.1 x10^3/uL (0.0-0.2) Prothrombin Time 14.4 SEC (11.7-14.0) Prothromb Time International Ratio 1.2 (0.8-1.1) D-Dimer (Iman) 0.48 ug/mlFEU (0.00-0.50) Sodium Level 136 mmol/L (136-145) Potassium Level 4.5 mmol/L (3.5-5.1) Chloride Level 99 mmol/L (98-107) Carbon Dioxide Level 23 mmol/L (21-32) Anion Gap 14 (6-14) Blood Urea Nitrogen 16 mg/dL (8-26) Creatinine 1.0 mg/dL (0.7-1.3) Estimated GFR (Cockcroft-Gault) 74.8 Glucose Level 107 mg/dL (70-99) Calcium Level 10.1 mg/dL (8.5-10.1) Magnesium Level 1.6 mg/dL (1.8-2.4) Total Bilirubin 0.7 mg/dL (0.2-1.0) Direct Bilirubin 0.2 mg/dL (0.0-0.2) Aspartate Amino Transf (AST/SGOT) 16 U/L (15-37) Alanine Aminotransferase (ALT/SGPT) 18 U/L (16-63) Alkaline Phosphatase 98 U/L (46-116) Creatine Kinase 100 U/L (39-308) Creatine Kinase MB (Mass) < 0.5 ng/mL (0.0-3.6) Creatine Kinase MB Relative Index 0.5 % (0-4) Troponin I Quantitative 0.031 ng/mL (0.000-0.055) 0.045 ng/mL (0.000-0.055) PK-Mpo-Q-Type Natriuretic Peptide 600 pg/mL (0-124) Total Protein 7.3 g/dL (6.4-8.2) Albumin 3.9 g/dL (3.4-5.0) Lipase 156 U/L (73-393) Influenza Type A Antigen Negative (NEGATIVE) Influenza Type B Antigen Negative (NEGATIVE) Urine Collection Type Unknown Urine Color Yellow Urine Clarity Clear Urine pH 7.0 Urine Specific [place] 1.020 Urine Protein Negative mg/dL (NEG-TRACE) Urine Glucose (UA) Negative mg/dL (NEG) Urine Ketones (Stick) Negative mg/dL (NEG) Urine Blood Negative (NEG) Urine Nitrite Negative (NEG) Urine Bilirubin Negative (NEG) Urine Urobilinogen Dipstick 1.0 mg/dL (0.2 mg/dL) Urine Leukocyte Esterase Negative (NEG) Urine RBC 0 /HPF (0-2) Urine WBC 0 /HPF (0-4) Urine Squamous Epithelial Cells None /LPF Urine Bacteria 0 /HPF (0-FEW) Urine Mucus Slight /LPF Urine Opiates Screen Neg (NEG) Urine Methadone Screen Neg (NEG) Urine Barbiturates Neg (NEG) Urine Phencyclidine Screen Neg (NEG) Urine Amphetamine/Methamphetamine Neg (NEG) Urine Benzodiazepines Screen Neg (NEG) Urine Cocaine Screen Neg (NEG) Urine Cannabinoids Screen Neg (NEG) Urine Ethyl Alcohol Neg (NEG) Test 07/23/17 04:50 07/23/17 07:09 07/23/17 11:02 White Blood Count 11.2 x10^3/uL (4.0-11.0) Red Blood Count 4.78 x10^6/uL (4.30-5.70) Hemoglobin 14.0 g/dL (13.0-17.5) Hematocrit 42.6 % (39.0-53.0) Mean Corpuscular Volume 89 fL (79-100) Mean Corpuscular Hemoglobin 29 pg (25-35) Mean Corpuscular Hemoglobin Concent 33 g/dL (31-37) Red Cell Distribution Width 15.0 % (11.5-14.5) Platelet Count 188 x10^3/uL (140-400) Neutrophils (%) (Auto) 69 % (31-73) Lymphocytes (%) (Auto) 18 % (24-48) Monocytes (%) (Auto) 13 % (0-9) Eosinophils (%) (Auto) 0 % (0-3) Basophils (%) (Auto) 0 % (0-3) Neutrophils # (Auto) 7.7 x10^3uL (1.8-7.7) Lymphocytes # (Auto) 2.0 x10^3/uL (1.0-4.8) Monocytes # (Auto) 1.5 x10^3/uL (0.0-1.1) Eosinophils # (Auto) 0.0 x10^3/uL (0.0-0.7) Basophils # (Auto) 0.0 x10^3/uL (0.0-0.2) Sodium Level 135 mmol/L (136-145) Potassium Level 4.5 mmol/L (3.5-5.1) Chloride Level 99 mmol/L (98-107) Carbon Dioxide Level 23 mmol/L (21-32) Anion Gap 13 (6-14) Blood Urea Nitrogen 17 mg/dL (8-26) Creatinine 1.0 mg/dL (0.7-1.3) Estimated GFR (Cockcroft-Gault) 74.8 BUN/Creatinine Ratio 17 (6-20) Glucose Level 110 mg/dL (70-99) Calcium Level 9.8 mg/dL (8.5-10.1) Total Bilirubin 0.9 mg/dL (0.2-1.0) Aspartate Amino Transf (AST/SGOT) 17 U/L (15-37) Alanine Aminotransferase (ALT/SGPT) 16 U/L (16-63) Alkaline Phosphatase 92 U/L (46-116) Troponin I Quantitative 0.056 ng/mL (0.000-0.055) Total Protein 7.5 g/dL (6.4-8.2) Albumin 3.8 g/dL (3.4-5.0) Albumin/Globulin Ratio 1.0 (1.0-1.7) Glucose (Fingerstick) 106 mg/dL (70-99) 107 mg/dL (70-99) ASSESSMENT/PLAN ASSESSMENT/PLAN 1. Mild troponin elevation; highest 0.056. CP free. Most probably demand ischemia secondary to acute illness. EKG with t-wave inversion of leads III and aVF. No previous for comparison. Doubt ACS 2. AFIB, paroxysmal; maintaining SR 3. Acute possibly viral illness, bronchitis; management as per IM 4. Hypertension; controlled 5. Hyperlipidemia; resume statin 6. Diabetes, II Recommendations Obtain echo to assess LV function/presence of WMA Check lipids Trend troponin Continue Cardizem for rate control and Sotalol for rhythm maintenance; OTc 420 Eliquis for stroke prevention If echo WNL, consider outpatient ischemic workup with primary weather clerk when acute issues have resolved. Problems: GRACIE CAPUTO MD 07/24/17 1319: CARDIAC CONSULT ALLERGIES ALLERGIES: Coded Allergies: metoclopramide (Verified Allergy, Severe, 07/22/17) rivaroxaban (Verified Allergy, Intermediate, 07/22/17) ASSESSMENT/PLAN ASSESSMENT/PLAN Patient seen and examined 07/23/17 (late entry). Agree with TUGGER OPERATOR's assessment and plan. Agree with TUGGER OPERATOR that slight troponin elevation could be secondary to demand ischemia 2-D echo showed normal LV systolic function without any wall motion abnormalities Patient has history of atrial fibrillation but presently maintaining sinus rhythm. Continue sotalol and Eliquis. Okay for discharge from cardiac standpoint. Thank you for your consultation. Problems: TASH PEREZ APRN Jul 23, 2017 12:53 GRACIE CAPUTO MD Jul 24, 2017 13:19
[2017-07-23 15:00] VITALS: BP 124/68
[2017-07-23] MEDS ORDERED: AZITHROMYCIN 250 MG TABLET. PO ONE (18:00)
[2017-07-23 19:00] VITALS: BP 95/64
[2017-07-23 23:00] VITALS: BP 135/60
[2017-07-24 03:00] VITALS: BP 114/60
[2017-07-24 06:23] LABS: BASO % 0 % (0-3); EOS % 2 % (0-3); HEMATOCRIT 42.4 % (39.0-53.0); HEMOGLOBIN 14.1 g/dL (13.0-17.5); LYMPH # 2.2 x10^3/uL (1.0-4.8); LYMPH % 23 % (24-48); MEAN CORPUSCULAR HEMOGLOBIN 30 pg (25-35); MEAN CORPUSCULAR HGB CONC 33 g/dL (31-37); MEAN CORPUSCULAR VOLUME 89 fL (79-100); MONO % 9 % (0-9); NEUT % 66 % (31-73); PLATELET COUNT 195 x10^3/uL (140-400); RED BLOOD COUNT 4.76 x10^6/uL (4.30-5.70); WHITE BLOOD COUNT 9.6 x10^3/uL (4.0-11.0)
[2017-07-24 06:26] LABS: CALCIUM 10.2 mg/dL (8.5-10.1); CREATININE 1.1 mg/dL (0.7-1.3); POTASSIUM 4.1 mmol/L (3.5-5.1)
[2017-07-24 07:00] VITALS: BP 111/66
[2017-07-24 07:16] LABS: CHOLESTEROL/HDL RATIO 3.1
[2017-07-24] MEDS: INSULIN ASPART 300 UNITS/3 ML INSULN.PEN SQ SCH (07:56)
[2017-07-24] MEDS: CHOLECALCIFEROL (VITAMIN D3) 5,000 UNIT CAPSULE PO SCH (07:59)
[2017-07-24] MEDS: APIXABAN 5 MG TABLET. PO SCH (07:59)
[2017-07-24] MEDS: MAGNESIUM OXIDE 400 MG TABLET PO SCH (07:59)
[2017-07-24] MEDS: CYANOCOBALAMIN (VITAMIN B-12) 1,000 MCG TABLET. PO SCH (07:59)
[2017-07-24] MEDS: LISINOPRIL 20 MG TABLET PO SCH (08:00)
[2017-07-24] MEDS: SOTALOL 80 MG TABLET. PO SCH (08:00)
--- NOTE | 2017-07-24 09:40 | PDOC ---
PROGRESS NOTES Chief Complaint Chief Complaint Viral URI DM2 Afib Elevated Troponin HTN HLD History of Present Illness History of Present Illness Patient reports feeling much better than yesterday and would like to be discharged home. His troponin is trending down from 0.056 yesterday to 0.041 last night and agree with cardiology that this was a most likely a demand ischemia secondary to his acute illness. Will await results of his echo and if normal then cardio recommends an outpatient workup of his ischemia. Okay to discharge when determined by cardiology. Vitals Vitals Vital Signs Date Time Temp Pulse Resp B/P (MAP) Pulse Ox O2 Delivery O2 Flow Rate FiO2 07/24/17 08:01 62 111/66 07/24/17 07:00 97.8 20 96 Room Air 97.8 Physical Exam General: Alert, Oriented X3, Cooperative, No acute distress Heart: Regular rate, Normal S1, Normal S2, Other (2/6 systolic murmur ) Lungs: Clear Abdomen: Normal bowel sounds, No tenderness Extremities: Normal pulses Skin: No breakdown, No significant lesion Labs LABS Laboratory Tests Test 07/23/17 11:02 07/23/17 16:35 07/23/17 18:00 07/23/17 20:26 Glucose (Fingerstick) 107 mg/dL (70-99) 98 mg/dL (70-99) 104 mg/dL (70-99) Troponin I Quantitative 0.041 ng/mL (0.000-0.055) Test 07/24/17 05:45 White Blood Count 9.6 x10^3/uL (4.0-11.0) Red Blood Count 4.76 x10^6/uL (4.30-5.70) Hemoglobin 14.1 g/dL (13.0-17.5) Hematocrit 42.4 % (39.0-53.0) Mean Corpuscular Volume 89 fL (79-100) Mean Corpuscular Hemoglobin 30 pg (25-35) Mean Corpuscular Hemoglobin Concent 33 g/dL (31-37) Red Cell Distribution Width 15.0 % (11.5-14.5) Platelet Count 195 x10^3/uL (140-400) Neutrophils (%) (Auto) 66 % (31-73) Lymphocytes (%) (Auto) 23 % (24-48) Monocytes (%) (Auto) 9 % (0-9) Eosinophils (%) (Auto) 2 % (0-3) Basophils (%) (Auto) 0 % (0-3) Neutrophils # (Auto) 6.3 x10^3uL (1.8-7.7) Lymphocytes # (Auto) 2.2 x10^3/uL (1.0-4.8) Monocytes # (Auto) 0.9 x10^3/uL (0.0-1.1) Eosinophils # (Auto) 0.1 x10^3/uL (0.0-0.7) Basophils # (Auto) 0.0 x10^3/uL (0.0-0.2) Sodium Level 134 mmol/L (136-145) Potassium Level 4.1 mmol/L (3.5-5.1) Chloride Level 100 mmol/L (98-107) Carbon Dioxide Level 22 mmol/L (21-32) Anion Gap 12 (6-14) Blood Urea Nitrogen 28 mg/dL (8-26) Creatinine 1.1 mg/dL (0.7-1.3) Estimated GFR (Cockcroft-Gault) 67.0 Glucose Level 121 mg/dL (70-99) Calcium Level 10.2 mg/dL (8.5-10.1) Triglycerides Level 101 mg/dL (0-150) Cholesterol Level 162 mg/dL (0-200) LDL Cholesterol, Calculated 90 mg/dL (0-100) VLDL Cholesterol, Calculated 20 mg/dL (0-40) Non-HDL Cholesterol Calculated 110 mg/dL (0-129) HDL Cholesterol 52 mg/dL (40-60) Cholesterol/HDL Ratio 3.1 Review of Systems Review of Systems Patient reports feeling better Patient denies SOB Patient denies cough Assessment and Plan Assessmemt and Plan Problems Medical Problems: (1) Weakness Status: Acute Assessment: Viral URI DM2 Afib Elevated Troponin HTN HLD Plan: Echo today Diabetic diet Home meds PT/OT Recheck labs Appreciate subspecialist input Okay to d/c home when determined by cardiology Problems: Comment Review of Relevant I have reviewed the following items grover (where applicable) has been applied. Labs Laboratory Tests Test 07/22/17 17:11 07/22/17 17:52 07/22/17 18:10 07/23/17 00:41 White Blood Count 9.3 x10^3/uL (4.0-11.0) Red Blood Count 4.82 x10^6/uL (4.30-5.70) Hemoglobin 14.1 g/dL (13.0-17.5) Hematocrit 43.2 % (39.0-53.0) Mean Corpuscular Volume 90 fL (79-100) Mean Corpuscular Hemoglobin 29 pg (25-35) Mean Corpuscular Hemoglobin Concent 33 g/dL (31-37) Red Cell Distribution Width 14.9 % (11.5-14.5) Platelet Count 199 x10^3/uL (140-400) Neutrophils (%) (Auto) 72 % (31-73) Lymphocytes (%) (Auto) 14 % (24-48) Monocytes (%) (Auto) 12 % (0-9) Eosinophils (%) (Auto) 0 % (0-3) Basophils (%) (Auto) 1 % (0-3) Neutrophils # (Auto) 6.7 x10^3uL (1.8-7.7) Lymphocytes # (Auto) 1.3 x10^3/uL (1.0-4.8) Monocytes # (Auto) 1.2 x10^3/uL (0.0-1.1) Eosinophils # (Auto) 0.0 x10^3/uL (0.0-0.7) Basophils # (Auto) 0.1 x10^3/uL (0.0-0.2) Prothrombin Time 14.4 SEC (11.7-14.0) Prothromb Time International Ratio 1.2 (0.8-1.1) D-Dimer (Iman) 0.48 ug/mlFEU (0.00-0.50) Sodium Level 136 mmol/L (136-145) Potassium Level 4.5 mmol/L (3.5-5.1) Chloride Level 99 mmol/L (98-107) Carbon Dioxide Level 23 mmol/L (21-32) Anion Gap 14 (6-14) Blood Urea Nitrogen 16 mg/dL (8-26) Creatinine 1.0 mg/dL (0.7-1.3) Estimated GFR (Cockcroft-Gault) 74.8 Glucose Level 107 mg/dL (70-99) Calcium Level 10.1 mg/dL (8.5-10.1) Magnesium Level 1.6 mg/dL (1.8-2.4) Total Bilirubin 0.7 mg/dL (0.2-1.0) Direct Bilirubin 0.2 mg/dL (0.0-0.2) Aspartate Amino Transf (AST/SGOT) 16 U/L (15-37) Alanine Aminotransferase (ALT/SGPT) 18 U/L (16-63) Alkaline Phosphatase 98 U/L (46-116) Creatine Kinase 100 U/L (39-308) Creatine Kinase MB (Mass) < 0.5 ng/mL (0.0-3.6) Creatine Kinase MB Relative Index 0.5 % (0-4) Troponin I Quantitative 0.031 ng/mL (0.000-0.055) 0.045 ng/mL (0.000-0.055) MK-Gvu-B-Type Natriuretic Peptide 600 pg/mL (0-124) Total Protein 7.3 g/dL (6.4-8.2) Albumin 3.9 g/dL (3.4-5.0) Lipase 156 U/L (73-393) Influenza Type A Antigen Negative (NEGATIVE) Influenza Type B Antigen Negative (NEGATIVE) Urine Collection Type Unknown Urine Color Yellow Urine Clarity Clear Urine pH 7.0 Urine Specific [place] 1.020 Urine Protein Negative mg/dL (NEG-TRACE) Urine Glucose (UA) Negative mg/dL (NEG) Urine Ketones (Stick) Negative mg/dL (NEG) Urine Blood Negative (NEG) Urine Nitrite Negative (NEG) Urine Bilirubin Negative (NEG) Urine Urobilinogen Dipstick 1.0 mg/dL (0.2 mg/dL) Urine Leukocyte Esterase Negative (NEG) Urine RBC 0 /HPF (0-2) Urine WBC 0 /HPF (0-4) Urine Squamous Epithelial Cells None /LPF Urine Bacteria 0 /HPF (0-FEW) Urine Mucus Slight /LPF Urine Opiates Screen Neg (NEG) Urine Methadone Screen Neg (NEG) Urine Barbiturates Neg (NEG) Urine Phencyclidine Screen Neg (NEG) Urine Amphetamine/Methamphetamine Neg (NEG) Urine Benzodiazepines Screen Neg (NEG) Urine Cocaine Screen Neg (NEG) Urine Cannabinoids Screen Neg (NEG) Urine Ethyl Alcohol Neg (NEG) Test 07/23/17 04:50 07/23/17 07:09 07/23/17 11:02 07/23/17 16:35 White Blood Count 11.2 x10^3/uL (4.0-11.0) Red Blood Count 4.78 x10^6/uL (4.30-5.70) Hemoglobin 14.0 g/dL (13.0-17.5) Hematocrit 42.6 % (39.0-53.0) Mean Corpuscular Volume 89 fL (79-100) Mean Corpuscular Hemoglobin 29 pg (25-35) Mean Corpuscular Hemoglobin Concent 33 g/dL (31-37) Red Cell Distribution Width 15.0 % (11.5-14.5) Platelet Count 188 x10^3/uL (140-400) Neutrophils (%) (Auto) 69 % (31-73) Lymphocytes (%) (Auto) 18 % (24-48) Monocytes (%) (Auto) 13 % (0-9) Eosinophils (%) (Auto) 0 % (0-3) Basophils (%) (Auto) 0 % (0-3) Neutrophils # (Auto) 7.7 x10^3uL (1.8-7.7) Lymphocytes # (Auto) 2.0 x10^3/uL (1.0-4.8) Monocytes # (Auto) 1.5 x10^3/uL (0.0-1.1) Eosinophils # (Auto) 0.0 x10^3/uL (0.0-0.7) Basophils # (Auto) 0.0 x10^3/uL (0.0-0.2) Sodium Level 135 mmol/L (136-145) Potassium Level 4.5 mmol/L (3.5-5.1) Chloride Level 99 mmol/L (98-107) Carbon Dioxide Level 23 mmol/L (21-32) Anion Gap 13 (6-14) Blood Urea Nitrogen 17 mg/dL (8-26) Creatinine 1.0 mg/dL (0.7-1.3) Estimated GFR (Cockcroft-Gault) 74.8 BUN/Creatinine Ratio 17 (6-20) Glucose Level 110 mg/dL (70-99) Calcium Level 9.8 mg/dL (8.5-10.1) Total Bilirubin 0.9 mg/dL (0.2-1.0) Aspartate Amino Transf (AST/SGOT) 17 U/L (15-37) Alanine Aminotransferase (ALT/SGPT) 16 U/L (16-63) Alkaline Phosphatase 92 U/L (46-116) Troponin I Quantitative 0.056 ng/mL (0.000-0.055) Total Protein 7.5 g/dL (6.4-8.2) Albumin 3.8 g/dL (3.4-5.0) Albumin/Globulin Ratio 1.0 (1.0-1.7) Glucose (Fingerstick) 106 mg/dL (70-99) 107 mg/dL (70-99) 98 mg/dL (70-99) Test 07/23/17 18:00 07/23/17 20:26 07/24/17 05:45 Troponin I Quantitative 0.041 ng/mL (0.000-0.055) Glucose (Fingerstick) 104 mg/dL (70-99) White Blood Count 9.6 x10^3/uL (4.0-11.0) Red Blood Count 4.76 x10^6/uL (4.30-5.70) Hemoglobin 14.1 g/dL (13.0-17.5) Hematocrit 42.4 % (39.0-53.0) Mean Corpuscular Volume 89 fL (79-100) Mean Corpuscular Hemoglobin 30 pg (25-35) Mean Corpuscular Hemoglobin Concent 33 g/dL (31-37) Red Cell Distribution Width 15.0 % (11.5-14.5) Platelet Count 195 x10^3/uL (140-400) Neutrophils (%) (Auto) 66 % (31-73) Lymphocytes (%) (Auto) 23 % (24-48) Monocytes (%) (Auto) 9 % (0-9) Eosinophils (%) (Auto) 2 % (0-3) Basophils (%) (Auto) 0 % (0-3) Neutrophils # (Auto) 6.3 x10^3uL (1.8-7.7) Lymphocytes # (Auto) 2.2 x10^3/uL (1.0-4.8) Monocytes # (Auto) 0.9 x10^3/uL (0.0-1.1) Eosinophils # (Auto) 0.1 x10^3/uL (0.0-0.7) Basophils # (Auto) 0.0 x10^3/uL (0.0-0.2) Sodium Level 134 mmol/L (136-145) Potassium Level 4.1 mmol/L (3.5-5.1) Chloride Level 100 mmol/L (98-107) Carbon Dioxide Level 22 mmol/L (21-32) Anion Gap 12 (6-14) Blood Urea Nitrogen 28 mg/dL (8-26) Creatinine 1.1 mg/dL (0.7-1.3) Estimated GFR (Cockcroft-Gault) 67.0 Glucose Level 121 mg/dL (70-99) Calcium Level 10.2 mg/dL (8.5-10.1) Triglycerides Level 101 mg/dL (0-150) Cholesterol Level 162 mg/dL (0-200) LDL Cholesterol, Calculated 90 mg/dL (0-100) VLDL Cholesterol, Calculated 20 mg/dL (0-40) Non-HDL Cholesterol Calculated 110 mg/dL (0-129) HDL Cholesterol 52 mg/dL (40-60) Cholesterol/HDL Ratio 3.1 Laboratory Tests Test 07/23/17 11:02 07/23/17 16:35 07/23/17 18:00 07/23/17 20:26 Glucose (Fingerstick) 107 mg/dL (70-99) 98 mg/dL (70-99) 104 mg/dL (70-99) Troponin I Quantitative 0.041 ng/mL (0.000-0.055) Test 07/24/17 05:45 White Blood Count 9.6 x10^3/uL (4.0-11.0) Red Blood Count 4.76 x10^6/uL (4.30-5.70) Hemoglobin 14.1 g/dL (13.0-17.5) Hematocrit 42.4 % (39.0-53.0) Mean Corpuscular Volume 89 fL (79-100) Mean Corpuscular Hemoglobin 30 pg (25-35) Mean Corpuscular Hemoglobin Concent 33 g/dL (31-37) Red Cell Distribution Width 15.0 % (11.5-14.5) Platelet Count 195 x10^3/uL (140-400) Neutrophils (%) (Auto) 66 % (31-73) Lymphocytes (%) (Auto) 23 % (24-48) Monocytes (%) (Auto) 9 % (0-9) Eosinophils (%) (Auto) 2 % (0-3) Basophils (%) (Auto) 0 % (0-3) Neutrophils # (Auto) 6.3 x10^3uL (1.8-7.7) Lymphocytes # (Auto) 2.2 x10^3/uL (1.0-4.8) Monocytes # (Auto) 0.9 x10^3/uL (0.0-1.1) Eosinophils # (Auto) 0.1 x10^3/uL (0.0-0.7) Basophils # (Auto) 0.0 x10^3/uL (0.0-0.2) Sodium Level 134 mmol/L (136-145) Potassium Level 4.1 mmol/L (3.5-5.1) Chloride Level 100 mmol/L (98-107) Carbon Dioxide Level 22 mmol/L (21-32) Anion Gap 12 (6-14) Blood Urea Nitrogen 28 mg/dL (8-26) Creatinine 1.1 mg/dL (0.7-1.3) Estimated GFR (Cockcroft-Gault) 67.0 Glucose Level 121 mg/dL (70-99) Calcium Level 10.2 mg/dL (8.5-10.1) Triglycerides Level 101 mg/dL (0-150) Cholesterol Level 162 mg/dL (0-200) LDL Cholesterol, Calculated 90 mg/dL (0-100) VLDL Cholesterol, Calculated 20 mg/dL (0-40) Non-HDL Cholesterol Calculated 110 mg/dL (0-129) HDL Cholesterol 52 mg/dL (40-60) Cholesterol/HDL Ratio 3.1 Microbiology 07/22/17 Blood Culture - Preliminary, Resulted NO GROWTH AFTER 1 DAY Medications Current Medications Ondansetron HCl (Zofran) 4 mg PRN Q8HRS PRN IV NAUSEA/VOMITING; Start at 18:45; Stop 07/23/17 at 18:44; Status DC Apixaban (Eliquis) 5 mg BID PO Last administered on 07/24/17t 07:59; Start at 23:00 Atorvastatin Calcium (Lipitor) 20 mg HS PO Last administered on 07/23/17 20: 15; Start 07/22/17 at 23:00 Cyanocobalamin (Vitamin B-12) 1,000 mcg BID PO Last administered on 07/24/17 07:59; Start 07/22/17 at 23:00 Diltiazem HCl (Cardizem 24hr Cd) 240 mg DAILY PO ; Start 07/23/17 at 09:00; Stop 07/23/17 at 09:00; Status DC Magnesium Oxide (Magnesium Oxide) 800 mg BID PO Last administered on 07:59; Start 07/22/17 at 23:00 Sotalol HCl (Betapace) 80 mg BID PO Last administered on 07/24/17 08:00; Start 07/22/17 at 23:00 Vitamin D (Vitamin D3) 5,000 unit DAILY PO ; Start 07/23/17 at 09:00; Stop at 09:00; Status DC Lisinopril (Prinivil) 20 mg DAILY PO ; Start 07/23/17 at 09:00; Stop 07/23/17 at 09:00; Status DC Insulin Aspart (NovoLOG) 0-7 UNITS TIDWMEALS SQ ; Start 07/23/17 at 08:00 Dextrose (Dextrose 50%-Water Syringe) 12.5 gm PRN Q15MIN PRN IV SEE COMMENTS; Start 07/22/17 at 22:30 Info (Anti-Coagulation Monitoring By Pharmacy) 1 each PRN DAILY PRN MC SEE COMMENTS Last administered on 07/23/17 01:13; Start 07/22/17 at 22:30 Guaifenesin (Mucinex) 600 mg BID PO Last administered on 07/24/17 08:00; Start 07/22/17 at 23:00 Vitamin D (Vitamin D3) 5,000 unit DAILY PO Last administered on 07/24/17 07: 59; Start 07/22/17 at 23:45 Diltiazem HCl (Cardizem 24hr Cd) 240 mg DAILY PO Last administered on 08:01; Start 07/22/17 at 23:45 Lisinopril (Prinivil) 20 mg DAILY PO Last administered on 07/24/17 08:00; Start 07/22/17 at 23:45 Pneumococcal Polyvalent Vaccine (Do NOT chart on this placeholder) 1 each PRN 1X PRN MC SEE COMMENTS; Start 07/23/17 at 02:15; Status UNV Pneumococcal Polyvalent Vaccine (Pneumovax 23) 0.5 ml ONCE ONCE VAX IM Last administered on 07/23/17 08:14; Start 07/23/17 at 09:00; Stop 07/23/17 at 09 :01; Status DC Acetaminophen (Tylenol) 650 mg PRN Q6HRS PRN PO MILD PAIN / TEMP Last administered on 07/23/17 17:44; Start 07/23/17 at 05:00 Throat Lozenges (Cepacol Sore Throat Lozenge) 1 patricia PRN Q2HRS PRN PO SORE THROAT; Start 07/23/17 at 05:00 Azithromycin (Zithromax) 500 mg 1X ONCE PO Last administered on 07/23/17 17: 44; Start 07/23/17 at 18:00; Stop 07/23/17 at 18:01; Status DC Active Scripts Active Reported Mag-Oxide (Magnesium Oxide) 400 Mg Tablet 2 Tab PO BID Vitamin B-12 (Cyanocobalamin (Vitamin B-12)) 1,000 Mcg Tablet 1 Tab PO BID Vitamin D3 (Cholecalciferol (Vitamin D3)) 5,000 Unit Tablet 1 Tab PO DAILY Metformin Hcl Er (Metformin Hcl) 500 Mg Tab.er.24h 500 Mg PO TIDWMEALS Atorvastatin Calcium 20 Mg Tablet 20 Mg PO HS Lisinopril-Hctz 20-12.5 Mg Tab (Lisinopril/Hydrochlorothiazide) 1 Each Tablet 12.5-20 Mg PO DAILY Eliquis (Apixaban) 5 Mg Tablet 5 Mg PO BID Sotalol (Sotalol Hcl) 80 Mg Tablet 80 Mg PO BID Diltiazem 24HR Cd (Diltiazem Hcl) 240 Mg Cap.er.24h 240 Mg PO DAILY Vitals/I & O Vital Sign - Last 24 Hours 07/23/17 07/23/17 07/23/17 07/23/17 10:44 15:00 19:00 20:00 Temp 97.9 97.9 98.7 97.9 97.9 98.7 Pulse 63 65 70 Resp 20 20 18 B/P (MAP) 128/70 (89) 124/68 (86) 95/64 (74) Pulse Ox 95 96 94 O2 Delivery Room Air Room Air Room Air Room Air 07/23/17 07/23/17 07/24/17 07/24/17 21:17 23:00 03:00 07:00 Temp 98.5 98.4 97.8 98.5 98.4 97.8 Pulse 65 66 62 62 Resp 19 16 20 B/P (MAP) 118/69 135/60 (85) 114/60 (78) 111/66 (81) Pulse Ox 97 96 96 O2 Delivery Room Air Room Air Room Air 07/24/17 07/24/17 07/24/17 08:00 08:00 08:01 Pulse 62 62 62 B/P (MAP) 111/66 111/66 111/66 Intake and Output 07/23/17 07/23/17 07/24/17 15:00 23:00 07:00 Intake Total 600 ml 1100 ml Balance 600 ml 1100 ml BLAKE HORTA III DO Jul 24, 2017 09:40
--- NOTE | 2017-07-24 10:19 | CARD ---
MR#: [id number] Date of Study: 07/24/2017 Ordering Physician: TASH PEREZ, Referring Physician: Martha NAVA: Romario Linares [facility] APPROVED REPORT EXAM: Two-dimensional and M-mode echocardiogram with Doppler and color Doppler. Other Information Quality : FairHR: 72bpm INDICATION Weakness RISK FACTORS Obesity 2D DIMENSIONS Left Atrium(2D)4.0 (1.6-4.0cm)IVSd1.3 (0.7-1.1cm) Aortic Root(2D)2.9 (2.0-3.7cm)LVDd4.8 (3.9-5.9cm) LVOT Diameter2.1 (1.8-2.4cm)PWd1.3 (0.7-1.1cm) LVDs3.4 (2.5-4.0cm)FS (%) 29.9 % SV61.8 mlLVEF(%)57.0 (>50%) Aortic Valve AoV Peak Ramesh.162.9cm/sAoV VTI30.8cm AO Peak GR.10.6mmHgLVOT Peak Ramesh.149.8cm/s AO Mean GR.6mmHgAVA (VMAX)3.09cm2 Mitral Valve MV E Inkoqzet35.7cm/sMV DECEL [id number] MV A Jkyfonne59.4cm/sE/A Ratio1.8 Pulmonary Valve PV Peak Rnbtymyn397.5cm/s Pulmonary Vein S1 Phzxddvn10.6cm/sD2 Wdaubujy38.5cm/s LEFT VENTRICLE The left ventricle is normal size. There is mild concentric left ventricular hypertrophy. The left ve ntricular systolic function is normal and the ejection fraction is within normal range. EF 55% There is grossly normal LV segmental wall motion. The left ventricular diastolic function and filling is no rmal for age. RIGHT VENTRICLE The right ventricle is normal size. The right ventricular systolic function is normal. ATRIA The left atrium size is normal. The right atrium size is normal. The interatrial septum is intact wit h no evidence for an atrial septal defect or patent foramen ovale as noted on 2-D or Doppler imaging. AORTIC VALVE The aortic valve is thickened but opens well. Doppler and Color Flow revealed no significant aortic r egurgitation. There is no significant aortic valvular stenosis. There is no aortic valvular vegetatio n. MITRAL VALVE The mitral valve is thickened but opens well. There is no evidence of mitral valve prolapse. There is no mitral valve stenosis. Doppler and Color-flow revealed trace mitral regurgitation. TRICUSPID VALVE Grossly normal. Doppler and Color Flow revealed no tricuspid valve regurgitation noted. There is no t ricuspid valve prolapse or vegetation. There is no tricuspid valve stenosis. PULMONIC VALVE Not visualized well. Doppler and Color Flow revealed no pulmonic valvular regurgitation. There is no pulmonic valvular stenosis. GREAT VESSELS The aortic root is normal in size. The IVC is normal in size and collapses >50% with inspiration. PERICARDIAL EFFUSION There is no pleural effusion. There is no evidence of significant pericardial effusion. Critical Notification Critical Value: No <Conclusion> The left ventricular systolic function is normal and the ejection fraction is within normal range. EF 55% There is grossly normal LV segmental wall motion. Technically difficult study but within these limitations no significant pulmonary HTN or valvular dis ease. Signed by : Solo Salcido, Electronically Approved : 07/24/2017 10:19:21
[2017-07-24 10:51] VITALS: BP 107/66
--- NOTE | 2017-07-24 15:28 | DS ---
DATE OF DISCHARGE: 07/24/2017 ADMISSION DIAGNOSES: Weakness and elevated troponin. DISCHARGE DIAGNOSES: Resolving weakness, resolving elevated troponins, probably secondary to demand ischemia, history of arrhythmias. HOSPITAL COURSE: The patient is a pleasant 67-year-old male who was weak. He has had previous arrhythmias and previous coronary artery disease. At this time, he was weak. Again, his troponin was 0.056. We are concerned he could be having a cardiac event. We admitted him. We checked serial enzymes, serial EKGs. We consulted cardiology. The patient basically is back to his baseline. We plan to discharge. DISPOSITION: Home. ACTIVITY: As tolerated. DIET: Low sodium. MEDICATIONS: Please see MRAD. TOTAL TIME: 34 minutes. BLAKE HORTA DO DR: AKIRA/gregory JOB#: [id number] / [id number]
== END 2017-07-24 11:45 | disposition home or self-care (01) | DRG 311 ==
LOC: ER 16:43 → 5 SOUTH 17:45
PROVIDERS: ADMIT Internal Medicine Hematology & Oncology; ATTEND Internal Medicine Hematology & Oncology
DX: I24.8 Other forms of acute ischemic heart disease (principal); E11.42 Type 2 diabetes mellitus with diabetic polyneuropathy; I48.0 Paroxysmal atrial fibrillation; E66.01 Morbid (severe) obesity due to excess calories; E78.5 Hyperlipidemia, unspecified; G47.33 Obstructive sleep apnea (adult) (pediatric); I10 Essential (primary) hypertension; I25.10 Atherosclerotic heart disease of native coronary artery without angina pectoris; J40 Bronchitis, not specified as acute or chronic; M19.90 Unspecified osteoarthritis, unspecified site; J02.9 Acute pharyngitis, unspecified; Z90.49 Acquired absence of other specified parts of digestive tract; Z79.4 Long term (current) use of insulin; Z82.49 Family history of ischemic heart disease and other diseases of the circulatory system; Z79.899 Other long term (current) drug therapy; Z88.1 Allergy status to other antibiotic agents; Z88.8 Allergy status to other drugs, medicaments and biological substances
CPT/HCPCS: 36415; 71010; 80048; 80053; 80061; 80076; 80307; 81001; 82553; 82962; 83690; 83735; 83880; 84484; 85025; 85379; 85610; 87040; 87804; 90732; 93005; 93306; J1815; Q0144; 99285-25; G0479

== ENCOUNTER 2018-06-11 10:01 | Emergency (ER) | payer BC, MEDICARE ==
[~2018-06-11] VITALS: Ht 175.3 cm; Wt 154.2 kg
[~2018-06-11 10:01] MED LIST: APIX5TAB PO; ATOR20TA58 PO; CHOL500016 PO; CYAN10005 PO; DILT240C32 PO; LISI1TAB5 PO; MAGN400T22 PO; METF500T9 PO; SOTA80TA48 PO
[2018-06-11 10:29] LABS: BASO # 0.1 x10^3/uL (0.0-0.2); BASO % 1 % (0-3); EOS # 0.1 x10^3/uL (0.0-0.7); EOS % 1 % (0-3); HEMATOCRIT 42.2 % (39.0-53.0); HEMOGLOBIN 14.5 g/dL (13.0-17.5); LYMPH # 1.4 x10^3/uL (1.0-4.8); LYMPH % 9 % (24-48); MEAN CORPUSCULAR HEMOGLOBIN 31 pg (25-35); MEAN CORPUSCULAR HGB CONC 34 g/dL (31-37); MEAN CORPUSCULAR VOLUME 90 fL (79-100); MONO # 0.8 x10^3/uL (0.0-1.1); MONO % 5 % (0-9); NEUT % 84 % (31-73); PLATELET COUNT 225 x10^3/uL (140-400); RED BLOOD COUNT 4.67 x10^6/uL (4.30-5.70); RED CELL DISTRIBUTION WIDTH 14.9 % (11.5-14.5); WHITE BLOOD COUNT 15.4 x10^3/uL (4.0-11.0)
[2018-06-11 10:37] LABS: CALCIUM 11.1 mg/dL (8.5-10.1); CREATININE 1.2 mg/dL (0.7-1.3); GFR 60.4; POTASSIUM 4.8 mmol/L (3.5-5.1)
--- NOTE | 2018-06-11 10:37 | EKG ---
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
[2018-06-11] MEDS ORDERED: IPRATRPIUM/ALBUTEROL 0.5/2.5MG 3 ML NEBU. NEB ONE (10:45)
--- NOTE | 2018-06-11 10:50 | PHYS DOC ---
Past Medical History Past Medical History: A-Fib, Arrhythmia, Bronchitis, CHF, Diabetes-Type II, High Cholesterol, Hypertension, Other Additional Past Medical Histor: SLEEP APNEA Past Surgical History: Appendectomy, Cholecystectomy, Other Additional Past Surgical Histo: BILAT KNEE Alcohol Use: None Drug Use: None Adult General Chief Complaint Chief Complaint: SHORTNESS OF BREATH HPI HPI Patient is a 68 year old male who presents with cough and shortness of breath. Patient states he has had upper respiratory symptoms over the last 48 hours. Overnight, he developed a cough which she describes to be so severe that he could not sleep. He does use a CPAP at home and the cough causes him a lot of difficulties last night. He does not have a history of lung disease. He does not use albuterol home. He has had some chills at home but no documented fever. He is mildly febrile on arrival to the ER. He has had sick contacts in the house. Review of Systems Review of Systems Constitutional: fever, chills Eyes: Denies change in visual acuity, redness, or eye pain HENT: + congestion Respiratory: + cough, dyspnea Cardiovascular: No additional information not addressed in HPI GI: Denies abdominal pain, nausea, vomiting Musculoskeletal: Denies back pain Integument: Denies rash or skin lesion Neurologic: Denies focal neuro complaints All other systems were reviewed and found to be within normal limits, except as documented in this note. Current Medications Current Medications Current Medications Medications (Trade) Dose Ordered Sig/Diane Start Time Stop Time Status Last Admin Dose Admin Acetaminophen (Tylenol) 1,000 mg 1X ONCE 06/11/18 11:00 06/11/18 11:01 DC 06/11/18 10:55 1,000 MG Albuterol Sulfate (Ventolin Neb Soln) 2.5 mg 1X ONCE 06/11/18 13:00 06/11/18 13:01 DC 06/11/18 12:44 2.5 MG Albuterol/ Ipratropium (Duoneb) 3 ml 1X ONCE 06/11/18 10:45 06/11/18 10:46 DC 06/11/18 10:58 3 ML Ceftriaxone Sodium 50 ml @ 100 mls/hr 1X ONCE 06/11/18 11:30 06/11/18 11:59 DC 06/11/18 11:16 100 MLS/HR Doxycycline Hyclate (Vibra-Tab) 100 mg 1X ONCE 06/11/18 13:30 06/11/18 13:31 DC 06/11/18 13:32 100 MG Ketorolac Tromethamine (Toradol 30mg Vial) 30 mg 1X ONCE 06/11/18 11:00 06/11/18 11:01 DC 06/11/18 10:56 30 MG Sodium Chloride 500 ml @ 500 mls/hr 1X ONCE 06/11/18 11:30 06/11/18 12:29 DC 06/11/18 11:09 500 MLS/HR Allergies Allergies Allergies Coded Allergies Type Severity Reaction Last Updated Verified metoclopramide Allergy Severe 07/22/17 Yes Sulfa (Sulfonamide Antibiotics) Allergy Intermediate RASH 06/11/18 Yes rivaroxaban Allergy Intermediate 07/22/17 Yes Physical Exam Physical Exam Constitutional: obese male in no acute distress but is coughing during the interview HENT: Normocephalic, atraumatic, bilateral external ears normal, oropharynx moist Eyes: PERRLA, EOMI, conjunctiva normal, no discharge Neck: Normal range of motion, no tenderness Cardiovascular:Heart rate regular rhythm, no murmur Lungs & Thorax: Bilateral breath sounds clear to auscultation Abdomen: obese, soft, NTTP Skin: Warm, dry, no erythema, no rash Extremities: equal pulses in all ext's Neurologic: Alert and oriented X 3, normal motor function Psychologic: Affect normal Current Patient Data Vital Signs Vital Signs Date Time Temp Pulse Resp B/P (MAP) Pulse Ox O2 Delivery O2 Flow Rate FiO2 06/11/18 13:10 74 22 114/56 (75) 96 Room Air 06/11/18 12:45 2.0 06/11/18 10:01 100.2 100.2 Lab Values Laboratory Tests Test 06/11/18 10:20 06/11/18 10:40 White Blood Count 15.4 x10^3/uL (4.0-11.0) H Red Blood Count 4.67 x10^6/uL (4.30-5.70) Hemoglobin 14.5 g/dL (13.0-17.5) Hematocrit 42.2 % (39.0-53.0) Mean Corpuscular Volume 90 fL (79-100) Mean Corpuscular Hemoglobin 31 pg (25-35) Mean Corpuscular Hemoglobin Concent 34 g/dL (31-37) Red Cell Distribution Width 14.9 % (11.5-14.5) H Platelet Count 225 x10^3/uL (140-400) Neutrophils (%) (Auto) 84 % (31-73) H Lymphocytes (%) (Auto) 9 % (24-48) L Monocytes (%) (Auto) 5 % (0-9) Eosinophils (%) (Auto) 1 % (0-3) Basophils (%) (Auto) 1 % (0-3) Neutrophils # (Auto) 13.0 x10^3uL (1.8-7.7) H Lymphocytes # (Auto) 1.4 x10^3/uL (1.0-4.8) Monocytes # (Auto) 0.8 x10^3/uL (0.0-1.1) Eosinophils # (Auto) 0.1 x10^3/uL (0.0-0.7) Basophils # (Auto) 0.1 x10^3/uL (0.0-0.2) Segmented Neutrophils % 85 % (35-66) H Band Neutrophils % 4 % (0-9) Lymphocytes % 8 % (24-48) L Monocytes % 3 % (0-10) Platelet Estimate Adequate (ADEQUATE) Sodium Level 137 mmol/L (136-145) Potassium Level 4.8 mmol/L (3.5-5.1) Chloride Level 100 mmol/L (98-107) Carbon Dioxide Level 26 mmol/L (21-32) Anion Gap 11 (6-14) Blood Urea Nitrogen 21 mg/dL (8-26) Creatinine 1.2 mg/dL (0.7-1.3) Estimated GFR (Cockcroft-Gault) 60.4 Glucose Level 129 mg/dL (70-99) H Calcium Level 11.1 mg/dL (8.5-10.1) H Troponin I Quantitative 0.018 ng/mL (0.000-0.055) NJ-Qcn-N-Type Natriuretic Peptide 298 pg/mL (0-124) H Influenza Type A Antigen Negative (NEGATIVE) Influenza Type B Antigen Negative (NEGATIVE) Laboratory Tests 06/11/18 10:20 Laboratory Tests 06/11/18 10:20 EKG EKG No STEMI Interpretation Time: 10:35 Radiology/Procedures Radiology/Procedures Findings: Cardiac silhouette appears within normal limits for size. No pneumothorax or pleural effusion is seen. Right lung appears relatively clear. There is interval development of nodular infiltrate involving the left mid lower lung field. Left shoulder degeneration is seen. Impression: 1. Interval development of left infiltrate, compatible with pneumonia. 2. Recommend appropriate treatment and follow-up PA and lateral chest radiograph in 6-8 weeks. Course & Med Decision Making Course & Med Decision Making Pertinent Labs and Imaging studies reviewed. (See chart for details) 10:20: Patient is seen and examined. He is in no acute distress. His lungs are clear. He does not have an oxygen requirement. He is noted to be mildly febrile. He does have a wheezy sounding cough however. Albuterol treatment is ordered. Also he describes some heaviness in his chest. ACS workup is also ordered. His EKG does not reveal acute STEMI. Patient was evaluated in the ER for respiratory symptoms. He was given 2 albuterol treatments in the ER. He was given a single dose of Rocephin and an additional doxycycline by mouth. X-ray documented above was revealing for a left infiltrate. The patient was given some IV fluids in the ER he felt much improved. He did not have leukocytosis. At discharge, the patient was having oxygen saturations of 95-97% on room air. He was subjectively improved. He was requesting discharge home. He is a poor candidate for azithromycin or levofloxacin due to the fact that he takes sotalol. Because of this, he is placed on doxycycline. Strict return precautions are discussed and he is advised to come back to the ER for any worsening symptoms over the next 48 hours. Dragon Disclaimer Dragon Disclaimer This electronic medical record was generated, in whole or in part, using a voice recognition dictation system. Departure Departure Disposition: HOME, SELF-CARE Condition: IMPROVED Referrals: TERRY AHN MD (PCP) Scripts Doxycycline Hyclate (DOXYCYCLINE HYCLATE) 100 Mg Capsule 1 CAP PO BID, #20 CAP Prov: PAULO GRECO DO 06/11/18 Albuterol Sulfate (PROAIR HFA INHALER) 8.5 Gm Hfa.aer.ad 2 PUFF INH Q4H PRN for SHORTNESS OF BREATH, #1 INHALER 0 Refills Prov: PAULO GRECO DO 06/11/18 PAULO GRECO DO Jun 11, 2018 10:50
--- NOTE | 2018-06-11 10:54 | RAD ---
Exam: AP portable chest History: Chest pain, dyspnea. Comparison: None. Findings: Cardiac silhouette appears within normal limits for size. No pneumothorax or pleural effusion is seen. Right lung appears relatively clear. There is interval development of nodular infiltrate involving the left mid lower lung field. Left shoulder degeneration is seen. Impression: 1. Interval development of left infiltrate, compatible with pneumonia. 2. Recommend appropriate treatment and follow-up PA and lateral chest radiograph in 6-8 weeks. Electronically signed by: Olu Dawson MD (06/11/2018 10:51 AM) [place] [id number]
[2018-06-11] MEDS ORDERED: ACETAMINOPHEN 500 MG TABLET PO ONE (11:00)
[2018-06-11] MEDS ORDERED: KETOROLAC 30 MG/ML VIAL. IV ONE (11:00)
[2018-06-11 11:12] LABS: INFLUENZA A PATIENT NEGATIVE (NEGATIVE); INFLUENZA B PATIENT NEGATIVE (NEGATIVE)
[2018-06-11] MEDS ORDERED: IV NORMAL SALINE 500ML BAG 500 ML IV ONE (11:30)
[2018-06-11 11:58] LABS: % BANDS 4 % (0-9); % LYMPHS 8 % (24-48); % MONOS 3 % (0-10); % SEGS 85 % (35-66); PLT ESTIMATE ADEQUATE (ADEQUATE)
[2018-06-11] MEDS ORDERED: ALBUTEROL SULFATE 2.5 MG/3 ML NEBU. NEB ONE (13:00)
[2018-06-11] MEDS ORDERED: PROAIR HFA8.5 GM INH (13:07)
[2018-06-11] MEDS ORDERED: DOXY100C2 PO (13:09)
[2018-06-11 13:10] VITALS: BP 114/56
[2018-06-11] MEDS ORDERED: DOXYCYCLINE HYCLATE 100 MG TABLET PO ONE (13:30)
== END 2018-06-11 13:50 | disposition home or self-care (01) ==
LOC: ER 10:02
DX: R91.8 Other nonspecific abnormal finding of lung field (principal); I48.91 Unspecified atrial fibrillation; E11.9 Type 2 diabetes mellitus without complications; E78.00 Pure hypercholesterolemia, unspecified; I11.0 Hypertensive heart disease with heart failure; I50.9 Heart failure, unspecified; E66.9 Obesity, unspecified; Z68.43 Body mass index [BMI] 50.0-59.9, adult; Z90.49 Acquired absence of other specified parts of digestive tract; Z88.2 Allergy status to sulfonamides; Z90.89 Acquired absence of other organs; Z88.8 Allergy status to other drugs, medicaments and biological substances
CPT/HCPCS: 36415; 71045; 80048; 83880; 84484; 85007; 85025; 87070; 87205; 87804; 93005; 94640; 96365; 96375; 99285; J0690; J1885; J7040; J7613; J7620

== ENCOUNTER → 2018-09-22 | Outpatient (CLI) | payer BC, MEDICARE ==
[2018-08-07 09:18] VITALS: BP 111/64
[~2018-09-22] MED LIST changes: +ALBU2.5V8 INH; +AZIT250T6 PO; +CEFU500T46 PO; +DOXY100C2 PO
--- NOTE | 2018-09-22 12:56 | RAD ---
EXAM: Chest, 2 views. HISTORY: Pneumonia. COMPARISON: 08/05/2018 FINDINGS: A frontal view of the chest is obtained. There has been complete to near complete resolution of previously demonstrated lingular and left lower lobe infiltrate. There is no pleural effusion or pneumothorax. There is stable cardiomegaly. IMPRESSION: 1. Complete to near complete resolution of lingular and left lower lobe infiltrate. 2. Stable cardiomegaly. Electronically signed by: Stefani Perez MD (09/22/2018 12:53 PM) [place] [id number]
== END | disposition home or self-care (01) ==
LOC: RAD 12:13
PROVIDERS: ATTEND Internal Medicine Critical Care Medicine
DX: J18.9 Pneumonia, unspecified organism (principal); R91.8 Other nonspecific abnormal finding of lung field; I51.7 Cardiomegaly
CPT/HCPCS: 71046